=== PATIENT | male | born 1960 | race Caucasian/White ===

== ENCOUNTER 2016-11-08 09:33 | Inpatient (IN) | payer SELFPAY ==
[2016-11-08] MEDS ORDERED: NS 1000 ML 1,000 ML ONE (09:50)
[2016-11-08] MEDS ORDERED: ASPIRIN ONE (09:51)
[2016-11-08] MEDS ORDERED: DUONEB 0.5 MG/3 MG NEB ONE (09:55)
[2016-11-08] MEDS: NS 1000 ML 1,000 ML IV SCH ×2 (09:57→18:05)
[2016-11-08] MEDS ORDERED: ASPIRIN PO ONE (09:57)
--- NOTE | 2016-11-08 09:57 | DR.GENAD ---
HPI - PCP Primary Care Physician: NONE - Complaint/Symptoms Chief Complaint Doctors Comments: states that patient has had left chest pain for two days and shortness of breath. The pain is non radiating and there is no diaphoresis. He has a history of lung disease but no history of heart disease. Chief Complaint:: "SEVERE HURTING IN CHEST AREA." Self Treatment fo Chief Complaint: ALEVE - Source History Provided: Patient - Mode of Arrival Mode of Arrival: Ambulatory - Timing Onset of Chief Complaint: 11/07/16 PMH - PMH Past Medical History: Yes Past Medical History: COPD Past Surgical History: No - Family History History of Family Medical Conditions: No - Social History Does patient currently use any type of tobacco product: Yes Have you used tobacco products in the last 12 months: Yes Type of Tobacco Use: Cigarettes How many years tobacco product used: 20 Does any household member use tobacco: Yes Alcohol Use: Heavy Do you use any recreational Drugs:: No Lives With: Family Lives Where: Home - infectious screening In the last 2 months have you had wt loss of >10#?: NO Have you had fever, night sweats or hemotysis?: No Have you traveled outside the country in the last 6 months?: No ROS - Review of Systems Constitutional: negative: Diaphoresis Eyes: No Symptoms Reported ENTM: No Symptoms Reported Respiratoy: No Symptoms Reported, See HPI, Short of Breath Cardiovascular: Chest Pain (left chest pain) Genitourinary: No Symptoms Reported Neurological: No Symptoms Reported Musculoskeletal: No Symptoms Reported Integumentary: No Symptoms Reported Hematologic/Lymphatic: No Symptoms Reported Endocrine: No Symptoms Reported Psychiatric: No Symptoms Reported All Other Systems: Reviewed and Negative PE - Vital Signs Vitals: Temperature 98.1 F Pulse Rate [Right Brachial] 103 Pulse Rate 122 Respiratory Rate 20 Blood Pressure [Left Arm] 137/89 Blood Pressure 160/97 O2 Sat by Pulse Oximetry 96 - General Limitations: No Limitations General Appearance: Alert, In No Apparent Distress - Head Head Exam: Normal Inspection, Atraumatic - Eyes Eye exam: Normal Appearance, PERRL, EOMI - ENT ENT Exam: Normal Exam External Ear Exam: Normal External Inspection TM/Canal Exam: Bilateral Normal Nose Exam: Normal Nose Exam Mouth Exam: Normal Inspection Throat Exam: Normal Inspection - Neck Neck Exam: Normal Inspection - Chest Chest Inspection: Normal Inspection - Respiratory Respiratory Exam: Prolonged Expiratory Phase Respiratory Exam: Bilateral Wheezing - Abdominal Exam Abdominal Exam: Normal Inspection, Normal Bowel Sounds Abdominal Tenderness: negative: RUQ, RLQ, LUQ, LLQ, Epigastrium, Suprapubic, Diffuse, Mild, Moderate, Severe, Other - Extremities Extremities Exam: Normal Inspection, Full ROM - Back Back Exam: Normal Inspection - Neurologic Neurological Exam: negative: Alert, Oriented X3, CN II-XII Intact, Normal Gait, Motor Sensory Deficit, Reflexes Normal, Other - Psychiatric Psychiatric Exam: Normal Affect, Normal Mood - Skin Skin Exam: Warm, Dry Course - Treatment Treatment: Cardiazem zina, A Fib HR 177; HR 93@1029; chest pain resolved s/p NTGx2 - Reevaluation 1st: Improved - Consultation Called: 11:30 (Dr Burt agreed to admit for further management) ROR - Labs Reviewed Laboratory Results Reviewed?: Yes Result Diagrams: 11/08/16 10:01 Laboratory: WBC 8.0 X10^3/uL (3.6-10.0) 11/08/16 10:01 RBC 4.49 X10^6/uL (4.7-6.0) L 11/08/16 10:01 Hgb 15.5 g/dL (13.5-18.0) 11/08/16 10:01 Hct 45.0 % (42.0-54.0) 11/08/16 10:01 MCV 100.3 fL (80.0-100.0) H 11/08/16 10:01 MCH 34.6 pg (27.0-34.0) H 11/08/16 10:01 MCHC 34.5 g/dL (33.0-35.0) 11/08/16 10:01 RDW 14.2 % (11.6-16.5) 11/08/16 10:01 Plt Count 174 X10^3/uL (150.0-450.0) 11/08/16 10:01 Plt Count Comment Adequate (ADEQUATE) 11/08/16 10:01 MPV 8.1 fL (7.4-11.0) 11/08/16 10:01 Neut % 40.9 % (42.0-75.0) L 11/08/16 10:01 Lymph % 26.4 % (21.0-51.0) 11/08/16 10:01 [place] % 32.2 % (0.0-13.0) H 11/08/16 10:01 Eos % 0.1 % (0.9-2.9) L 11/08/16 10:01 Baso % 0.4 % (0.2-1.0) 11/08/16 10:01 Neut # 3.3 x10^3/uL (2.2-4.8) 11/08/16 10:01 Lymph # 2.1 X10^3/uL (1.3-2.9) 11/08/16 10:01 [place] # 2.6 x10^3/uL (0.3-0.8) H 11/08/16 10:01 Eos # 0.0 x10^3/uL (0.0-0.2) 11/08/16 10:01 Baso # 0.0 X10^3/uL (0.0-0.1) 11/08/16 10:01 Absolute Nucleated RBC 0.2 /100WBC 11/08/16 10:01 Total Counted 100 11/08/16 10:01 Neutrophils % (Manual) 50 % (39-76) 11/08/16 10:01 Band Neutrophils % 2 % (0-10) 11/08/16 10:01 Lymphocytes % (Manual) 30 % (13-43) 11/08/16 10:01 Monocytes % (Manual) 18 % (4-9) H 11/08/16 10:01 Plt Morphology Comment Normal (NORMAL) 11/08/16 10:01 RBC Morphology Normal (NORMAL) 11/08/16 10:01 INR Target Range - 11/08/16 10:01 INR 1.03 (0.8-1.3) 11/08/16 10:01 D-Dimer 109 ng/mL (0-400) 11/08/16 10:01 Sample Site Rr 11/08/16 09:56 ABG pH 7.460 (7.35-7.45) H 11/08/16 09:56 ABG pCO2 36.0 mmHg (35.0-45.0) 11/08/16 09:56 ABG pO2 123.0 mmHg (80.0-100.0) H 11/08/16 09:56 ABG HCO3 25.6 mmol/L (22-26) 11/08/16 09:56 ABG O2 Saturation 99.0 % (90-100) 11/08/16 09:56 ABG Base Excess 1.9 mmol/L (-2.0-2.0) 11/08/16 09:56 Danial Test Pos 11/08/16 09:56 A-a Gradient 32.0 mmHg 11/08/16 09:56 FiO2 28.000 11/08/16 09:56 Blood Gas Comments Pt jose eduardo well. cdn 11/08/16 09:56 Phosphorus 3.3 mg/dL (2.6-4.7) 11/08/16 10:01 Magnesium 1.7 mg/dL (1.7-2.9) 11/08/16 10:01 Creatine Kinase 58 Units/L (39-308) 11/08/16 10:01 CK-MB (CK-2) < 1.0 ng/mL (0-4.0) 11/08/16 10:01 CK/CKMB % Calc 1.7 % (<4) 11/08/16 10:01 Troponin I < 0.02 ng/mL (0-1.5) 11/08/16 10:01 - XRAY XRAY Interpreted by: Radiologist (Chest: The heart is normal. The pulmonary vessels are normal. The lungs are mildly hyhperinflated. No consolidation or effusion is seen. ) - Diagnosis Discharge Problem: A-fib Qualifiers: Atrial fibrillation type: unspecified Qualified Code(s): I48.91 - Unspecified atrial fibrillation Chest pain Qualifiers: Chest pain type: unspecified Qualified Code(s): R07.9 - Chest pain, unspecified - Discharge Plan Condition: Stable - Follow ups/Referrals Follow ups/Referrals: NFD,None [Primary Care Provider] - 3 days - Instructions
[2016-11-08 10:01] LABS: ABG ALLEN TEST POS; ABG BASE EXCESS 1.9 mmol/L (-2.0-2.0); ABG HCO3 25.6 mmol/L (22-26)
[2016-11-08] MEDS ORDERED: NS 100 ML IV 100 ML IV ONE (10:06)
[2016-11-08] MEDS ORDERED: CARDIZEM INJ 50 MG VIAL IVP ONE (10:06)
[2016-11-08] MEDS ORDERED: CARDIZEM INJ 125 MG VIAL ONE (10:07)
[2016-11-08] MEDS ORDERED: CARDIZEM INJ 50 MG VIAL ONE (10:10)
[2016-11-08] MEDS: CARDIZEM INJ 125 MG VIAL 125 MG in NS 100 ML IV 100 ML IV PRN ×2 (10:22→20:43)
--- NOTE | 2016-11-08 10:25 | RAD ---
HISTORY: Chest pain Study: Portable chest Comparison: None Findings: The heart is normal. The pulmonary vessels are normal. The lungs are mildly hyperinflated. No consoli dation or effusion is seen. There is overlying EKG lead artifact. No pneumothorax is seen the bones a re intact. IMPRESSION: Overlying EKG lead artifact and mild hyperinflation with no acute pulmonary abnormality seen. Reported By:
[2016-11-08 10:36] LABS: BASOPHILS % (AUTO) 0.4 % (0.2-1.0); EOSINOPHILS % (AUTO) 0.1 % (0.9-2.9); HEMOGLOBIN 15.5 g/dL (13.5-18.0); LYMPHOCYTES # (AUTO) 2.1 X10^3/uL (1.3-2.9); LYMPHOCYTES % (AUTO) 26.4 % (21.0-51.0); MEAN CORPUSCULAR HEMOGLOBIN 34.6 pg (27.0-34.0); MEAN CORPUSCULAR HGB CONC 34.5 g/dL (33.0-35.0); MEAN CORPUSCULAR VOLUME 100.3 fL (80.0-100.0); MEAN PLATELET VOLUME 8.1 fL (7.4-11.0); MONOCYTES # (AUTO) 2.6 x10^3/uL (0.3-0.8); MONOCYTES % (AUTO) 32.2 % (0.0-13.0); NEUTROPHILS # (AUTO) 3.3 x10^3/uL (2.2-4.8); NEUTROPHILS % (AUTO) 40.9 % (42.0-75.0); PLATELET COUNT 174 X10^3/uL (150.0-450.0); RED BLOOD COUNT 4.49 X10^6/uL (4.7-6.0); RED CELL DISTRIBUTION WIDTH 14.2 % (11.6-16.5)
[2016-11-08 10:37] LABS: CKMB % 1.7 % (<4); CREATINE KINASE 58 Units/L (39-308); CREATINE KINASE MB < 1.0 ng/mL (0-4.0); MAGNESIUM 1.7 mg/dL (1.7-2.9); PHOSPHORUS 3.3 mg/dL (2.6-4.7); TROPONIN I < 0.02 ng/mL (0-1.5)
[2016-11-08 11:15] LABS: BAND NEUTROPHILS % 2 % (0-10); PLATELET MORPHOLOGY COMMENT NORMAL (NORMAL)
[2016-11-08] MEDS ORDERED: ZOFRAN INJ 4 MG VIAL IVP PRN (12:10)
[2016-11-08] MEDS ORDERED: MORPHINE SULFATE INJ 4 MG IVP PRN (12:11)
[2016-11-08] MEDS: NICODERM PATCH 21 MG/24 HR TD SCH (13:20)
[2016-11-08 13:31] LABS: BILIRUBIN,URINE NEGATIVE (NEGATIVE); BLOOD/HEMOGLOBIN,URINE 1+ (NEGATIVE); GLUCOSE, URINE NEGATIVE (NEGATIVE); KETONES,URINE NEGATIVE (NEGATIVE); LEUKOCYTE ESTERASE ,URINE NEGATIVE (NEGATIVE); NITRITES,URINE NEGATIVE (NEGATIVE); PROTEIN,URINE NEGATIVE (NEGATIVE); UROBILINOGEN,URINE NORMAL (NORMAL)
[2016-11-08 13:33] VITALS: BMI 16.2
[2016-11-08 13:48] LABS: APPEARANCE,URINE CLEAR (CLEAR); BACTERIA,URINE NEGATIVE /HPF (NEGATIVE); COLOR,URINE YELLOW (YELLOW); RBC,URINE RARE /HPF (NEGATIVE); SQUAMOUS EPITHELIAL CELL,UR RARE /HPF (NEGATIVE)
[2016-11-08] MEDS: DUONEB 0.5 MG/3 MG NEB SCH ×2 (16:15→20:21)
[2016-11-08 16:21] LABS: CKMB % 1.8 % (<4); CREATINE KINASE 57 Units/L (39-308); CREATINE KINASE MB < 1.0 ng/mL (0-4.0); TROPONIN I < 0.02 ng/mL (0-1.5)
--- NOTE | 2016-11-08 17:19 | DR.H&P ---
H&P - History & Physical for Day of: H&P Date: 11/08/16 - Chief Complaint Chief Complaint: CHEST PAIN, SHORT OF BREATH, ATRIAL FIBRILLATION - Allergies Allergies/Adverse Reactions: Allergies Allergy/AdvReac Type Severity Reaction Status Date / Time No Known Allergies Allergy Verified 11/08/16 09:35 - History of Present Illness History of Present Illness: IS A 56 YEAR OLD WHITE MALE WHO PRESENTED TO THE ER WITH COMPLAINTS OF CHEST PAIN AND SHORTNESS OF BREATH THAT BEGAN TWO DAYS PRIOR TO PRESENTING TO THE ER. HE DENIES RADIATION OF PAIN OR DIAPHORESIS. HE ALSO DENIES A CARDIAC HISTORY. LUNGS WERE NOTED CLEAR ON AUSCULTATION. ON ARRIVAL TO ER, VITALS WERE 98.6-107-32-100%-167/126. PATIENT WAS PLACED ON CHALKER SOLES. ATRIAL FIBRILLATION WAS NOTED ON MONITOR. AN EKG WAS OBTAINED AND REPORTED ATRIAL FIBRILLATION WITH RATE OF 134 AND PVCs. CBC WNL EXCEPT RBC 4.43, MVC 100.3, MCH 34.6, NEUT % 40.9, MONO % 32.2, EOS % 0.1, MONO # 2.6. ABG REPORTED PH 7.460, PC02 36, P02 123, HCO3 25.6. CMP WNL. CARDIAC ENZYMES WNL. HE WAS GIVEN ASA 325MG, DUONEB, AND STARTED ON A CARDIZEM DRIP. WE ADMITTED PATIENT TO ICU FOR FURTHER TREATMENT AND OBSERVATION. HE WAS STARTED ON NS @ 125ML/HR, DUONEBS QID, MORPHINE 4MG IV Q6H PRN PAIN, NICOTINE PATCH DAILY, ZOFRAN 4MG IV Q8H PRN NAUSEA, AND WILL CONTINUE ON CARDIZEM DRIP. WE PLAN TO OBTAIN SERIAL CARDIAC ENZYMES AND EKGs. WE WILL RECHECK CBC, CMP AND FOLLOW UP WITH PATIENT IN AM. - Past Medical History Past Medical History: COPD, GERD, Hypertension Additional Medical History: CARDIAC ARRYTHMIA - Past Surgical History Surgical History: No History - Family History Family Medical History: Diabetes Mellitus, Cancer, Hypertension - Social History Does patient currently use any type of tobacco product: Yes Have you used tobacco products in the last 12 months: Yes Type of Tobacco Use: Cigarettes How many years tobacco product used: 30 Does any household member use tobacco: Yes Alcohol Use: DAILY Drug Use: None - Medications Home Medications: No Known Home Medications 1 tab XX DAILY 08/29/17 [History Confirmed 11/08/16] - Review of Systems Constitutional: No Symptoms Reported. denies: See HPI, Fever, Chills, Sweats, Weakness, Malaise, Other Eyes: No Symptoms Reported. denies: See HPI, Pain, Vision Change, Conjunctivae Inflammation, Eyelid Inflammation, Redness, Other ENT: No Symptoms Reported. denies: See HPI, Ear Pain, Ear Discharge, Nose Pain , Nose Discharge, Nose Congestion, Mouth Pain, Mouth Swelling, Throat Pain, Throat Swelling, Other Respiratory: See HPI, Shortness of Breath. denies: No Symptoms Reported, Cough , Dry, Hemoptysis, SOB with Excertion, Pleuritic Pain, Sputum, Wheezing, Other Cardiovascular: Chest Pain, See HPI. denies: No Symptoms Reported, Palpitations , Orthopnea, Paroxysmal Noc. Dyspnea, Edema, Light Headedness, Other Gastrointestinal: No Symptoms Reported. denies: See HPI, Nausea, Vomiting, Abdominal Pain, Diarrhea, Constipation, Melena, Hematochezia, Other Genitourinary: No Symptoms Reported. denies: See HPI, Dysuria, Frequency, Incontinence, Hematuria, Retention, Other Musculoskeletal: No Symptoms Reported. denies: See HPI, Shoulder Pain, Arm Pain , Back Pain, Hand Pain, Leg Pain, Foot Pain, Neck Pain, Other Skin: No Symptoms Reported. denies: See HPI, Rash, Lesions, Jaundice, Bruising , Wound, Ecchymosis, Other Neurological: No Symptoms Reported. denies: See HPI, Weakness, Numbness, Incoordination, Change in Speech, Confusion, Seizures, Other - Physical Exam Vital Signs: Temperature 98.9 F Pulse Rate [Right Brachial] 67 Pulse Rate 63 Respiratory Rate 24 Blood Pressure [Left Arm] 130/77 Blood Pressure 160/97 O2 Sat by Pulse Oximetry 97 Oriented: Normal Eyes: Normal Ear: Normal Nose: Normal Throat: Normal Respiratory: Clear Throughout Cardiovascular: Tachycardia : Normal Auscultation: Bowel Sounds: Normal Palpation: Normal Tenderness: Normal Skin: Normal Musculoskeletal: Normal Psychiatric: Normal Mood Description: Calm Affect: Normal Speech Pattern: Clear - Assessment/Plan (1) A-fib Qualifiers: Atrial fibrillation type: unspecified Qualified Code(s): I48.91 - Unspecified atrial fibrillation Status: Acute Plan: CARDIZEM DRIP, TELEMETRY, MONITOR EKG, CONTINUE TO MONITOR (2) Chest pain Qualifiers: Chest pain type: unspecified Qualified Code(s): R07.9 - Chest pain, unspecified Status: Acute Plan: SERIAL CARDIAC ENZYMES AND EKGs, MORPHINE PRN PAIN, NITRO PRN PAIN, SUPPLEMENTAL OXYGEN, TELEMETRY, CONTINUE TO MONITOR
[2016-11-08 22:00] LABS: CKMB % 2.1 % (<4); CREATINE KINASE 47 Units/L (39-308); CREATINE KINASE MB < 1.0 ng/mL (0-4.0); TROPONIN I < 0.02 ng/mL (0-1.5)
[2016-11-09] MEDS: NS 1000 ML 1,000 ML IV SCH ×2 (01:22→08:16)
[2016-11-09 05:21] LABS: ALANINE AMINOTRANSFERASE 10 Units/L (12-78); ALBUMIN 2.7 g/dL (3.4-5.0); ALKALINE PHOSPHATASE 45 Units/L (46-116); ASPARTATE AMINO TRANSFERASE 13 Units/L (15-37); BLOOD UREA NITROGEN 4 mg/dL (7-18); CARBON DIOXIDE 26.4 mmol/L (21-32); CHLORIDE 107 mmol/L (98-107); CREATININE 0.67 mg/dL (0.70-1.30); GLUCOSE 85 mg/dL (65-99); SODIUM 139 mmol/L (136-145); TOTAL PROTEIN 6.1 g/dL (6.4-8.2); eGFR BLACK RACES > 60 (>60); eGFR NON BLACK RACES > 60 (>60)
[2016-11-09 05:22] LABS: BASOPHILS % (AUTO) 0.6 % (0.2-1.0); EOSINOPHILS % (AUTO) 0.3 % (0.9-2.9); HEMATOCRIT 39.8 % (42.0-54.0); HEMOGLOBIN 13.7 g/dL (13.5-18.0); LYMPHOCYTES % (AUTO) 33.6 % (21.0-51.0); MEAN CORPUSCULAR HEMOGLOBIN 34.8 pg (27.0-34.0); MEAN CORPUSCULAR HGB CONC 34.6 g/dL (33.0-35.0); MEAN CORPUSCULAR VOLUME 100.6 fL (80.0-100.0); MEAN PLATELET VOLUME 8.6 fL (7.4-11.0); MONOCYTES # (AUTO) 1.1 x10^3/uL (0.3-0.8); MONOCYTES % (AUTO) 17.6 % (0.0-13.0); NEUTROPHILS # (AUTO) 2.9 x10^3/uL (2.2-4.8); NEUTROPHILS % (AUTO) 47.9 % (42.0-75.0); PLATELET COUNT 142 X10^3/uL (150.0-450.0); RED BLOOD COUNT 3.96 X10^6/uL (4.7-6.0); RED CELL DISTRIBUTION WIDTH 13.9 % (11.6-16.5)
[2016-11-09] MEDS ORDERED: K-RIDER 10 MEQ/NS 100 ML 10 MEQ/100 ML BAG IV PRN (06:32)
[2016-11-09] MEDS ORDERED: POTASSIUM CHLORIDE LIQ 20 MEQ UDC PO PRN (06:32)
[2016-11-09] MEDS ORDERED: K-LYTE EFFERVESCENT PO PRN (06:32)
[2016-11-09] MEDS ORDERED: K-DUR TAB 20 MEQ PO PRN (06:32)
[2016-11-09] MEDS: NICODERM PATCH 21 MG/24 HR TD SCH (08:16)
--- NOTE | 2016-11-09 08:37 | RAD ---
HISTORY: Shortness of breath. Study: Portable chest. Comparison: Chest x-ray dated November 08, 2016. Findings: The trachea is midline. The cardiac silhouette is unremarkable. Chronic emphysematous changes. No o bvious focal consolidation, pleural effusion, or pneumothorax. The bony thorax is unremarkable. IMPRESSION: No acute cardiopulmonary disease. Reported By:
[2016-11-09] MEDS: DUONEB 0.5 MG/3 MG NEB SCH (09:26)
[2016-11-09 10:35] VITALS: BP 163/82
== END 2016-11-09 10:58 | disposition home or self-care (01) | DRG 310 ==
LOC: ER 09:43 → ICU 12:02
PROVIDERS: ADMIT Internal Medicine; ATTEND Internal Medicine
DX: I48.91 Unspecified atrial fibrillation (principal); R07.89 Other chest pain; R06.02 Shortness of breath; J44.9 Chronic obstructive pulmonary disease, unspecified; R94.31 Abnormal electrocardiogram [ECG] [EKG]; I10 Essential (primary) hypertension; K21.9 Gastro-esophageal reflux disease without esophagitis
CPT/HCPCS: 36415; 36600; 71010; 80053; 81001; 82550; 82553; 82803; 83735; 84100; 84484; 85025; 85378; 85610; 93005; 94640; 96365; 96367; 96374; 96375; 99284; 99285; A4222; J3490; J7620

== ENCOUNTER 2017-07-17 11:42 | Emergency (ER) | payer OTHER ==
[2017-07-17 11:45] VITALS: BP 207/88; BMI 15.7
[2017-07-17] MEDS ORDERED: TORADOL 60 MG VIAL IM ONE (13:03)
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
[2017-07-17] MEDS ORDERED: TORADOL 60 MG VIAL ONE (13:08)
== END 2017-07-17 13:16 | disposition left against medical advice (07) ==
LOC: ER 11:58
DX: M54.5 Low back pain (principal)
CPT/HCPCS: 99281; J1885

== ENCOUNTER 2021-12-13 06:36 | Inpatient (IN) ==
--- NOTE | 2021-12-13 06:52 | DR.SOBA ---
HPI Time Seen Time Seen by Provider: 12/13/21 06:52 HPI Comment HPI Comment: A 61 y/o male presenting with c/o SOB, palpitaiaon and nasal blood loss x 4 days, He subsequrntly has nasal bleed He denies chad chest pain. COVID-19 Coronavirus risk:travel/contact w/high risk person: No Has patient experienced Coronavirus symptoms: Yes Coronavirus symptoms experienced: Coughing and Shortness of Breath Reviewed Nurses Notes Reviewed: Yes Source History Provided: Patient Timing Onset of Chief Complaint: 12/09/21 Duration Duration: Days Context Onset:: At Rest PE Risk Factors:: None Associated Signs and Symptoms Associated Signs and Symptoms: Cough PMH PMH Past Medical History: Hypertension Past Surgical History: No Surgical History: No History Family History Family Medical History: Diabetes Mellitus, Cancer and Hypertension Social History Do you use any recreational Drugs:: No Travel Risk Coronavirus risk:travel/contact w/high risk person: No Has patient experienced Coronavirus symptoms: Yes Coronavirus symptoms experienced: Coughing and Shortness of Breath ROS Review of Systems Constitutional: No Symptoms Reported Eyes: No Symptoms Reported ENTM: No Symptoms Reported Respiratoy: Non-Productive Cough and Short of Breath Cardiovascular: No Symptoms Reported Gastrointestinal/Abdominal: No Symptoms Reported Genitourinary: No Symptoms Reported Neurological: No Symptoms Reported Musculoskeletal: No Symptoms Reported Integumentary: No Symptoms Reported Hematologic/Lymphatic: No Symptoms Reported Endocrine: No Symptoms Reported Psychiatric: No Symptoms Reported All Other Systems: Reviewed and Negative PE Vital Signs Vitals: Temperature 98.3 F Pulse Rate 113 Respiratory Rate 41 Blood Pressure [Left Arm] 163/82 Blood Pressure 147/82 O2 Sat by Pulse Oximetry 99 General Limitations: No Limitations General Appearance: Alert and In No Apparent Distress Head Head Exam: Normal Inspection, Atraumatic and Normocephalic Eyes Eye exam: Normal Appearance and EOMI ENT ENT Exam: Normal Exam, Normal Oropharynx, Normal External Ear Exam and Mucous Membranes Moist Neck Neck Exam: Normal Inspection, Full ROM and Trachea Midline Chest Chest Inspection: Normal Inspection and Symmetric Chest Wall Rise Respiratory Respiratory Exam: Normal Lung Sounds Bilat Cardiovascular Cardiovascular Exam: Regular Rate, Normal Rhythm, Normal Heart Sounds, +S1 and +S2 Abdominal Exam Abdominal Exam: Normal Inspection, Normal Bowel Sounds and Soft Extremities Extremities Exam: Normal Inspection, Full ROM and Tenderness Back Back Exam: Normal Inspection and Full ROM Neurologic Neurological Exam: Alert and Oriented X3 Psychiatric Psychiatric Exam: Normal Affect and Normal Mood Skin Skin Exam: Dry, Intact and Normal Color COURSE Treatment Treatment: his test results were reviewed with hm and his son. They were informed of plan to admit. I had spoken to Dr. Marley who is deportation officer and he okayed the admission Reevaluation 1st: Improved Education/Counseling Education/Counseling: Patient, Family, Education and Counseling Educated On: Treatment, Diagnosis, Prognosis and Needs for Follow Up ROR Labs Reviewed Laboratory Results Reviewed?: Yes Result Diagrams: 12/13/21 06:44 12/13/21 06:44 Laboratory: WBC 16.4 X10^3/uL (3.6-10.0) H 12/13/21 06:44 RBC 5.31 X10^6/uL (4.7-6.0) 12/13/21 06:44 Hgb 15.3 g/dL (13.5-18.0) 12/13/21 06:44 Hct 46.1 % (42.0-54.0) 12/13/21 06:44 MCV 86.7 fL (80.0-100.0) 12/13/21 06:44 MCH 28.7 pg (27.0-34.0) 12/13/21 06:44 MCHC 33.1 g/dL (33.0-35.0) 12/13/21 06:44 RDW 24.0 % (11.6-16.5) H 12/13/21 06:44 Plt Count 86 X10^3/uL (150.0-450.0) L 12/13/21 06:44 Plt Count Comment Decreased (ADEQUATE) 12/13/21 06:44 MPV 9.7 fL (7.4-11.0) 12/13/21 06:44 Neut % (Auto) 10.7 % (42.0-75.0) L 12/13/21 06:44 Lymph % (Auto) 5.6 % (21.0-51.0) L 12/13/21 06:44 [place] % (Auto) 83.6 % (0.0-13.0) H 12/13/21 06:44 Eos % (Auto) 0.0 % (0.9-2.9) L 12/13/21 06:44 Baso % (Auto) 0.1 % (0.2-1.0) L 12/13/21 06:44 Neut # (Auto) 1.7 x10^3/uL (2.2-4.8) L 12/13/21 06:44 Lymph # (Auto) 0.9 X10^3/uL (1.3-2.9) L 12/13/21 06:44 [place] # (Auto) 13.7 x10^3/uL (0.3-0.8) H 12/13/21 06:44 Eos # (Auto) 0.0 x10^3/uL (0.0-0.2) 12/13/21 06:44 Baso # (Auto) 0.0 X10^3/uL (0.0-0.1) 12/13/21 06:44 Absolute Nucleated RBC 0.0 /100WBC 12/13/21 06:44 Giant Platelets Rare 12/13/21 06:44 Plt Morphology Comment Normal (NORMAL) 12/13/21 06:44 RBC Morphology Abnormal (NORMAL) 12/13/21 06:44 Anisocytosis 2+ A 12/13/21 06:44 Target Cells Slight A 12/13/21 06:44 Stomatocytes 1+ A 12/13/21 06:44 D-Dimer 0.50 ug/ml (0.0-0.57) 12/13/21 06:44 Sodium 135 mmol/L (136-145) L 12/13/21 06:44 Corrected Sodium 135 mmol/L (136-145) L 12/13/21 06:44 Potassium 3.8 mmol/L (3.5-5.1) 12/13/21 06:44 Chloride 96 mmol/L (98-107) L 12/13/21 06:44 Carbon Dioxide 31.1 mmol/L (21-32) 12/13/21 06:44 BUN 6 mg/dL (7-18) L 12/13/21 06:44 Creatinine 0.84 mg/dL (0.70-1.30) 12/13/21 06:44 Est GFR (MDRD) Af Amer > 60 (>60) 12/13/21 06:44 Est GFR (MDRD) Non-Af > 60 (>60) 12/13/21 06:44 Glucose 111 mg/dL (65-99) H 12/13/21 06:44 Calcium 8.5 mg/dL (8.5-10.1) 12/13/21 06:44 Corrected Calcium 9.1 mg/dL (8.5-10.1) 12/13/21 06:44 Total Bilirubin 0.50 mg/dL (0.2-1.0) 12/13/21 06:44 AST 39 Units/L (15-37) H 12/13/21 06:44 ALT 19 Units/L (12-78) 12/13/21 06:44 Alkaline Phosphatase 86 Units/L (46-116) 12/13/21 06:44 Creatine Kinase 205 Units/L (39-308) 12/13/21 06:44 Troponin I High Sens 23.5 ng/L (4.0-60.0) 12/13/21 06:44 B-Natriuretic Peptide 179 pg/mL (0-79) H 12/13/21 06:44 Total Protein 8.3 g/dL (6.4-8.2) H 12/13/21 06:44 Albumin 3.2 g/dL (3.4-5.0) L 12/13/21 06:44 Globulin 5.1 g/dL (2.5-4.5) H 12/13/21 06:44 Albumin/Globulin Ratio 0.6 Ratio (1.1-2.1) L 12/13/21 06:44 EKG Rate: 120 Prospect: Normal Rhythm: ST Block: None Hypertrophy: MELISSA ST: Normal Opioid Opioid Risk Tool Age (Joaquin box if 16-45): No History of Preadolescent Sexual Abuse: No Total: 0 Total Score Risk Category: Low Risk Copyright: [facility] predicting aberrant behaviors Discharge Plan Diagnosis Discharge Problem: Pneumonia, A-fib, Lung nodule Discharge Plan Patient Disposition: 09 ADMITTED INPATIENT Condition: Stable Prescriptions: No Action No Known Home Medications 1 tab XX DAILY diltiazem HCl 180 MG capsule,extended release 24hr 1 cap PO Q24H Qty: 30 3RF Rx Instructions: TAKE 1 TABLET DAILY cyclobenzaprine 10 mg tablet 1 tab PO BID atorvastatin 40 mg tablet 1 tab PO QDAY cilostazol 100 mg tablet 1 tab PO BID lisinopril-hydrochlorothiazide 20-12.5 mg tablet 1 tab PO QDAY azithromycin 250 mg tablet 1 tab PO QDAY metoprolol succinate 50 mg tablet extended release 24 hr 1 tab PO QDAY hydrocodone-acetaminophen 10-325 mg tablet 1 tab PO TID PRN cephalexin 500 mg capsule 1 cap PO prednisone 50 mg tablet 1 tab PO QDAY albuterol sulfate [ProAir HFA] 90 mcg/actuation HFA aerosol inhaler 1 puff inhalation Q4HR fluticasone propionate 50 mcg/actuation spray,suspension 1 spray INTRANASAL QDAY lactulose 10 gram/15 mL solution 15 ml PO QDAY PRN (Reason: constipation) budesonide-formoterol [Symbicort] 160-4.5 mcg/actuation HFA aerosol inhaler 2 puff inhalation BID Eliquis 5 mg tablet 1 tab PO BID Combivent Respimat 20-100 mcg/actuation mist 1 puff inhalation QID Health Concerns: Post Hospitalization: new medications and changes needed to prevent readmission or further decline. Pt educated and given instructions on all concerns. Plan of Treatment: Continue with present treatment and follow up plan. Pt is to keep follow up appointment as instructed and take medications as ordered. Orders to Discharge Patient Discharge Orders: Transfer (Routine); Ordered 12/13/21 Ordered By: JOSE GU Follow ups/Referrals Follow ups/Referrals: Douglas LUNA [Primary Care Provider] - 3 days ADDITIONAL NOTES Additional Notes Additional Notes: Name: Nara GORDON#: [id number]: [id number]: 1960ex: MLocation: EROrder Number(s): [id number](s):CHEST, 1 VIEW Ordering Physician: JOSE GU Primary Care: Douglas LUNA Service Date: 12/13/21 Service Time: 0638 HISTORY SHORT OF BREATH STUDY CHEST, 1 VIEW COMPARISON None TECHNIQUE AP view of the chest FINDINGS There is narrowing of the cardiac and mediastinal contours. Lungs are hyperexpanded. Small airspace opacity in the right upper lobe. There is a nodular left midlung opacity that measures 1.3 cm craniocaudal and appears to have spiculated margins. There is blunting of the costophrenic sulci. No pneumothorax. IMPRESSION COPD. Small airspace opacity in the right upper lobe may represent pneumonia. Suspicious nodular left midlung opacity. Recommend CT chest for further evaluation. Electronically signed by: Kevin Walls (Dec 13, 2021 06:53:54) Report Electronically signed: 12/13/21 0655 CC: Jose Gu
--- NOTE | 2021-12-13 06:55 | RAD ---
HISTORYSHORT OF BREATHSTUDYCHEST, 1 VIEWCOMPARISONNoneTECHNIQUEAP view of the chestFINDINGSThere is narrowing of the cardiac and mediastinal contours. Lungs are hyperexpanded. Small airspace opacity in the right upper lobe. There is a nodular left midlung opacity that measures 1.3 cm craniocaudal and appears to have spiculated margins. There is blunting of the costophrenic sulci. No pneumothorax.IMPRESSIONCOPD. Small airspace opacity in the right upper lobe may represent pneumonia.Suspicious nodular left midlung opacity. Recommend CT chest for further evaluation.Electronically signed by: Kevin Walls (Dec 13, 2021 06:53:54)
[2021-12-13 06:59] LABS: BASOPHILS % (AUTO) 0.1 % (0.2-1.0); HEMATOCRIT 46.1 % (42.0-54.0); HEMOGLOBIN 15.3 g/dL (13.5-18.0); LYMPHOCYTES # (AUTO) 0.9 X10^3/uL (1.3-2.9); LYMPHOCYTES % (AUTO) 5.6 % (21.0-51.0); MEAN CORPUSCULAR HEMOGLOBIN 28.7 pg (27.0-34.0); MEAN CORPUSCULAR HGB CONC 33.1 g/dL (33.0-35.0); MEAN CORPUSCULAR VOLUME 86.7 fL (80.0-100.0); MEAN PLATELET VOLUME 9.7 fL (7.4-11.0); MONOCYTES # (AUTO) 13.7 x10^3/uL (0.3-0.8); MONOCYTES % (AUTO) 83.6 % (0.0-13.0); NEUTROPHILS # (AUTO) 1.7 x10^3/uL (2.2-4.8); NEUTROPHILS % (AUTO) 10.7 % (42.0-75.0); RED BLOOD COUNT 5.31 X10^6/uL (4.7-6.0); WHITE BLOOD COUNT 16.4 X10^3/uL (3.6-10.0)
[2021-12-13] MEDS ORDERED: LEVAQUIN PREMIX IV 750 MG 750 MG/150 ML BAG IV ONE ×2 (07:09→07:15)
[2021-12-13] MEDS: DUONEB 0.5 MG/3 MG (3 mL) NEB ONE ×2 (07:11→09:21)
[2021-12-13] MEDS ORDERED: XOPENEX 1.25 MG/3 ML NEBULE NEB ONE (07:11)
[2021-12-13] MEDS ORDERED: SOLU-Medrol 40 MG VIAL IVP ONE (07:11)
[2021-12-13] MEDS ORDERED: SOLU-Medrol 40 MG VIAL ONE (07:15)
[2021-12-13 07:18] LABS: ALANINE AMINOTRANSFERASE 19 Units/L (12-78); ALBUMIN 3.2 g/dL (3.4-5.0); ALKALINE PHOSPHATASE 86 Units/L (46-116); ASPARTATE AMINO TRANSFERASE 39 Units/L (15-37); BLOOD UREA NITROGEN 6 mg/dL (7-18); CALCIUM 8.5 mg/dL (8.5-10.1); CARBON DIOXIDE 31.1 mmol/L (21-32); CHLORIDE 96 mmol/L (98-107); COR CA(FOR HYPOALB) 9.1 mg/dL (8.5-10.1); COR NA(FOR HYPERGLY) 135 mmol/L (136-145); CREATININE 0.84 mg/dL (0.70-1.30); SODIUM 135 mmol/L (136-145); TOTAL PROTEIN 8.3 g/dL (6.4-8.2); eGFR NON BLACK RACES > 60 (>60)
[2021-12-13 07:23] LABS: ANISOCYTOSIS 2+; GIANT PLATELET RARE; PLATELET MORPHOLOGY COMMENT NORMAL (NORMAL); STOMATOCYTES 1+; TARGET CELLS SLIGHT
[2021-12-13] MEDS ORDERED: TUSSIONEX PENNKINETIC SUSP PO PRN (07:41)
[2021-12-13] MEDS: LEVAQUIN PREMIX IV 750 MG 750 MG/150 ML BAG IV SCH (08:29)
[2021-12-13] MEDS ORDERED: PATIENT'S HOME MEDICATION (Lisinopril-Hydrochlorothiazide 20-12.5 mg tablet) PO SCH (10:16)
[2021-12-13] MEDS ORDERED: PATIENT'S HOME MEDICATION (Ipratropium-Albuterol [Combivent Respimat] 20-100 mcg/actuation IN SCH (10:16)
[2021-12-13] MEDS ORDERED: PREDNISONE 50 MG PO SCH (10:16)
[2021-12-13] MEDS ORDERED: PATIENT'S HOME MEDICATION (Budesonide-Formoterol [Symbicort] 160-4.5 mcg/actuation HFA aer IN SCH (10:16)
[2021-12-13] MEDS ORDERED: VENTOLIN or PROAIR HFA IN SCH (10:16)
[2021-12-13 11:15] VITALS: BMI 14.8
[2021-12-13] MEDS ORDERED: ZESTRIL TAB 20 MG ONE (11:21)
[2021-12-13] MEDS ORDERED: NS 1/2 1,000 ML IV 1,000 ML IV ONE (11:22)
[2021-12-13] MEDS: ELIQUIS PO SCH ×2 (11:33→20:16)
[2021-12-13] MEDS: PLETAL PO SCH ×2 (11:34→20:16)
[2021-12-13] MEDS: HYDROCHLOROTHIAZIDE 12.5 MG CAP PO SCH (11:34)
[2021-12-13] MEDS: FLEXERIL TAB 10 MG PO SCH ×2 (11:35→20:16)
[2021-12-13] MEDS: TAMIFLU PO SCH ×2 (11:36→20:15)
[2021-12-13] MEDS: ZESTRIL TAB 20 MG PO SCH (11:38)
[2021-12-13] MEDS: FLONASE NASAL SPRAY ENOSTRIL SCH (11:38)
[2021-12-13] MEDS: ROBITUSSIN DM PO SCH ×4 (11:40→20:16)
[2021-12-13] MEDS: NS 1/2 1,000 ML IV 1,000 ML IV SCH ×2 (12:16→22:05)
[2021-12-13] MEDS: XOPENEX 1.25 MG/3 ML NEBULE NEB SCH ×3 (13:10→21:00)
[2021-12-13] MEDS: NICOTINE PATCH TD SCH (14:23)
[2021-12-13] MEDS: TOPROL XL PO SCH (14:24)
[2021-12-13] MEDS: NORCO 10/325 TAB PO PRN (14:25)
[2021-12-13] MEDS: LIPITOR TAB 40 MG PO SCH (20:16)
[2021-12-13] MEDS: PULMICORT NEB TX 0.5 MG NEB SCH (21:00)
[2021-12-14] MEDS ORDERED: NS 1/2 1,000 ML IV 1,000 ML IV ONE ×2 (00:39→08:18)
[2021-12-14] MEDS: NS 1/2 1,000 ML IV 1,000 ML IV SCH ×2 (00:42→11:14)
[2021-12-14 06:21] LABS: BASOPHILS % (AUTO) 0.1 % (0.2-1.0); HEMATOCRIT 38.2 % (42.0-54.0); HEMOGLOBIN 12.8 g/dL (13.5-18.0); LYMPHOCYTES % (AUTO) 13.5 % (21.0-51.0); MEAN CORPUSCULAR HEMOGLOBIN 29.1 pg (27.0-34.0); MEAN CORPUSCULAR HGB CONC 33.4 g/dL (33.0-35.0); MEAN CORPUSCULAR VOLUME 87.3 fL (80.0-100.0); MEAN PLATELET VOLUME 9.6 fL (7.4-11.0); MONOCYTES # (AUTO) 4.6 x10^3/uL (0.3-0.8); NEUTROPHILS % (AUTO) 26.4 % (42.0-75.0); RED BLOOD COUNT 4.38 X10^6/uL (4.7-6.0); WHITE BLOOD COUNT 7.7 X10^3/uL (3.6-10.0)
[2021-12-14 06:37] LABS: ALANINE AMINOTRANSFERASE 16 Units/L (12-78); ALBUMIN 2.4 g/dL (3.4-5.0); ALKALINE PHOSPHATASE 59 Units/L (46-116); ASPARTATE AMINO TRANSFERASE 28 Units/L (15-37); BLOOD UREA NITROGEN 8 mg/dL (7-18); CALCIUM 7.6 mg/dL (8.5-10.1); CARBON DIOXIDE 32.4 mmol/L (21-32); CHLORIDE 96 mmol/L (98-107); COR CA(FOR HYPOALB) 8.9 mg/dL (8.5-10.1); SODIUM 132 mmol/L (136-145); TOTAL PROTEIN 6.6 g/dL (6.4-8.2); eGFR NON BLACK RACES > 60 (>60)
[2021-12-14] MEDS ORDERED: POTASSIUM CHL 40 MEQ/NS 0.45% 500 ML IV PRN (06:43)
[2021-12-14] MEDS ORDERED: MICRO K EXTEN CAP 10 MEQ PO PRN (06:43)
[2021-12-14] MEDS ORDERED: KLOR-CON PO PRN (06:43)
[2021-12-14] MEDS ORDERED: POTASSIUM CHL 60 MEQ/NS 0.45% 500 ML IV PRN (06:43)
[2021-12-14] MEDS ORDERED: K-RIDER 10 MEQ/NS 100 ML 10 MEQ/100 ML BAG IV PRN (06:43)
[2021-12-14] MEDS ORDERED: POTASSIUM CHLORIDE LIQ 20 MEQ UDC PO PRN (06:43)
[2021-12-14 07:34] LABS: ANISOCYTOSIS 2+; PLATELET MORPHOLOGY COMMENT NORMAL (NORMAL); TARGET CELLS 1+
[2021-12-14] MEDS ORDERED: ZESTRIL TAB 20 MG ONE (08:17)
--- NOTE | 2021-12-14 08:19 | DR.H&P ---
H&P History & Physical for Day of: H&P Date: 12/13/21 Chief Complaint Chief Complaint: Shortness of breath Weakness, Fatigue Allergies Allergies Allergy/AdvReac Type Severity Reaction Status Date / Time No Known Allergies Allergy Verified 11/08/16 09:35 History of Present Illness History of Present Illness: Pt is a 61 year old male past medical history of Hypertension, Atrial fibrillation, COPD, presenting with worsening shortness of breath, weakness, and fatigue for the past week. He reports having chills a few days ago but denies any current fevers. Reports wheezing and cough. He is not on any home oxygen. Labs/imaging: Wbc 16.4, Hgb 15.3, Plt 86, Na 135, K 3.8, Creatinine 0.84, Glucose 111, D-dimer 0.50, Troponin negative, BNP 179, Influenza A positive, CXR results: COPD. Small airspace opacity in the right upper lobe may represent pneumonia. Suspicious nodular left midlung opacity. Recommend CT chest for further evaluation. Blood cultures pending, Sputum cultures pending. Pt was started on supplemental oxygen of 3L nasal cannula, IVF 1/2 NS@75ml/h, Antibiotics: IV Levaquin 750mg. Will add Tamiflu for influenza A. Scheduled bronchodilators. Restart home medications, add tussionex for cough. After discussing with patient will add metoprolol succinate 25mg since patient was taking medications previously and ran out of refills. Awaiting CT chest results based on CXR. Wean/titrate supplemental oxygen as tolerated. Will continue to closely monitor, follow up labs/imaging. Past Medical History Past Medical History: Hypertension Additional Medical History: CARDIAC ARRYTHMIA Past Surgical History Surgical History: No History Family History Family Medical History: Diabetes Mellitus, Cancer and Hypertension Social History Does patient currently use any type of tobacco product: Yes Have you used tobacco products in the last 12 months: Yes Type of Tobacco Use: Cigarettes Does any household member use tobacco: Yes Alcohol Use: Rarely Drug Use: None Medications Home Medications: No Known Allergies Allergy (Verified 11/08/16 09:35) CONTINUE taking the following medications albuterol sulfate 90 mcg/actuation aerosol inhaler (ProAir HFA) 1 puff inhalation Q4HR 12/13/21 [History] apixaban 5 mg tablet (Eliquis) 1 tab PO BID 12/13/21 [History] atorvastatin 40 mg tablet 1 tab PO QDAY PRN 12/13/21 [History] azithromycin 250 mg tablet 1 tab PO QDAY 12/13/21 [History] budesonide-formoterol HFA 160 mcg-4.5 mcg/actuation aerosol inhaler (Symbicort) 2 puff inhalation BID 12/13/21 [History] cyclobenzaprine 10 mg tablet 1 tab PO BID PRN 12/13/21 [History] fluticasone propionate 50 mcg/actuation nasal spray,suspension 1 spray intranasal QDAY 12/13/21 [History] hydrocodone 10 mg-acetaminophen 325 mg tablet 1 tab PO TID PRN 12/13/21 [History] ipratropium 20 mcg-albuterol 100 mcg/actuation mist for inhalation (Combivent Respimat) 1 puff inhalation QID PRN 12/13/21 [History] lactulose 10 gram/15 mL oral solution 15 ml PO QDAY PRN constipation 12/13/21 [History] lisinopril 20 mg-hydrochlorothiazide 12.5 mg tablet 1 tab PO QDAY 12/13/21 [History] prednisone 50 mg tablet 1 tab PO QDAY 12/13/21 [History] Labs Result Diagrams: 12/15/21 05:40 12/15/21 05:40 Labs: 12/13/21 12:56 Sputum - Expectorated Sputum - Final Laboratory WBC 7.7 X10^3/uL (3.6-10.0) D 12/14/21 05:37 RBC 4.38 X10^6/uL (4.7-6.0) L 12/14/21 05:37 Hgb 12.8 g/dL (13.5-18.0) L D 12/14/21 05:37 Hct 38.2 % (42.0-54.0) L 12/14/21 05:37 MCV 87.3 fL (80.0-100.0) 12/14/21 05:37 MCH 29.1 pg (27.0-34.0) 12/14/21 05:37 MCHC 33.4 g/dL (33.0-35.0) 12/14/21 05:37 RDW 23.0 % (11.6-16.5) H 12/14/21 05:37 Plt Count 70 X10^3/uL (150.0-450.0) L 12/14/21 05:37 Plt Count Comment Decreased (ADEQUATE) 12/14/21 05:37 MPV 9.6 fL (7.4-11.0) 12/14/21 05:37 Neut % (Auto) 26.4 % (42.0-75.0) L 12/14/21 05:37 Lymph % (Auto) 13.5 % (21.0-51.0) L 12/14/21 05:37 [place] % (Auto) 60.0 % (0.0-13.0) H 12/14/21 05:37 Eos % (Auto) 0.0 % (0.9-2.9) L 12/14/21 05:37 Baso % (Auto) 0.1 % (0.2-1.0) L 12/14/21 05:37 Neut # (Auto) 2.0 x10^3/uL (2.2-4.8) L 12/14/21 05:37 Lymph # (Auto) 1.0 X10^3/uL (1.3-2.9) L 12/14/21 05:37 [place] # (Auto) 4.6 x10^3/uL (0.3-0.8) H 12/14/21 05:37 Eos # (Auto) 0.0 x10^3/uL (0.0-0.2) 12/14/21 05:37 Baso # (Auto) 0.0 X10^3/uL (0.0-0.1) 12/14/21 05:37 Absolute Nucleated RBC 0.1 /100WBC 12/14/21 05:37 Giant Platelets Rare 12/13/21 06:44 Plt Morphology Comment Normal (NORMAL) 12/14/21 05:37 RBC Morphology Abnormal (NORMAL) 12/14/21 05:37 Anisocytosis 2+ A 12/14/21 05:37 Target Cells 1+ A 12/14/21 05:37 Stomatocytes 1+ A 12/13/21 06:44 D-Dimer 0.50 ug/ml (0.0-0.57) 12/13/21 06:44 Sodium 132 mmol/L (136-145) L 12/14/21 05:37 Corrected Sodium TNP 12/14/21 05:37 Potassium 3.1 mmol/L (3.5-5.1) L 12/14/21 05:37 Chloride 96 mmol/L (98-107) L 12/14/21 05:37 Carbon Dioxide 32.4 mmol/L (21-32) H 12/14/21 05:37 BUN 8 mg/dL (7-18) 12/14/21 05:37 Creatinine 0.70 mg/dL (0.70-1.30) 12/14/21 05:37 Est GFR (MDRD) Af Amer > 60 (>60) 12/14/21 05:37 Est GFR (MDRD) Non-Af > 60 (>60) 12/14/21 05:37 Glucose 75 mg/dL (65-99) 12/14/21 05:37 Calcium 7.6 mg/dL (8.5-10.1) L 12/14/21 05:37 Corrected Calcium 8.9 mg/dL (8.5-10.1) 12/14/21 05:37 Magnesium 1.6 mg/dL (1.7-2.9) L 12/14/21 05:37 Total Bilirubin 0.40 mg/dL (0.2-1.0) 12/14/21 05:37 AST 28 Units/L (15-37) 12/14/21 05:37 ALT 16 Units/L (12-78) 12/14/21 05:37 Alkaline Phosphatase 59 Units/L (46-116) 12/14/21 05:37 Creatine Kinase 205 Units/L (39-308) 12/13/21 06:44 Troponin I High Sens 23.5 ng/L (4.0-60.0) 12/13/21 06:44 B-Natriuretic Peptide 179 pg/mL (0-79) H 12/13/21 06:44 Total Protein 6.6 g/dL (6.4-8.2) 12/14/21 05:37 Albumin 2.4 g/dL (3.4-5.0) L 12/14/21 05:37 Globulin 4.2 g/dL (2.5-4.5) 12/14/21 05:37 Albumin/Globulin Ratio 0.6 Ratio (1.1-2.1) L 12/14/21 05:37 SARS-CoV-2 (PCR) Negative (NEGATIVE) 12/13/21 07:30 Influenza Type A (PCR) Positive (NEGATIVE) A 12/13/21 07:30 Influenza Type B (PCR) Negative (NEGATIVE) 12/13/21 07:30 RSV (PCR) Negative (NEGATIVE) 12/13/21 07:30 Review of Systems Constitutional: Chills and Weakness Eyes: No Symptoms Reported ENT: No Symptoms Reported Respiratory: Cough, Shortness of Breath, Sputum and Wheezing Cardiovascular: No Symptoms Reported Gastrointestinal: No Symptoms Reported Genitourinary: No Symptoms Reported Musculoskeletal: No Symptoms Reported Skin: No Symptoms Reported Neurological: No Symptoms Reported Physical Exam Vital Signs: Temperature 98.2 F Pulse Rate [Right Brachial] 76 Pulse Rate 70 Respiratory Rate 20 Blood Pressure [Left Arm] 91/55 Blood Pressure 146/85 O2 Sat by Pulse Oximetry 99 Oriented: Normal Eyes: Normal Ear: Normal Nose: Normal Throat: Normal Respiratory: Clear Throughout Cardiovascular: Normal : Normal Auscultation: Bowel Sounds: Normal Palpation: Normal Tenderness: Normal Skin: Normal Musculoskeletal: Normal Psychiatric: Normal Mood Description: Calm and Appropriate Affect: Normal Speech Pattern: Clear and Appropriate Assessment/Plan (1) Influenza A: Narrative Support Text: Start on tamiflu Status: Acute (2) Pneumonia: Narrative Support Text: IV Levaquin Status: Acute (3) Lung nodule: Narrative Support Text: CT chest ordered Status: Acute (4) A-fib: Narrative Support Text: Add metoprolol succineate 25mg for rate control Status: Acute (5) COPD exacerbation: Status: Acute Review H&P Reviewed: Yes Patient was examined?: Yes
[2021-12-14] MEDS: XOPENEX 1.25 MG/3 ML NEBULE NEB SCH ×5 (08:37→20:47)
[2021-12-14] MEDS: PULMICORT NEB TX 0.5 MG NEB SCH ×2 (08:37→20:47)
[2021-12-14] MEDS: ZESTRIL TAB 20 MG PO SCH ×2 (08:57→09:28)
[2021-12-14] MEDS: ELIQUIS PO SCH ×2 (08:58→21:42)
[2021-12-14] MEDS: FLONASE NASAL SPRAY ENOSTRIL SCH (08:58)
[2021-12-14] MEDS: LEVAQUIN PREMIX IV 750 MG 750 MG/150 ML BAG IV SCH (08:59)
[2021-12-14] MEDS ORDERED: SOLU-Medrol 40 MG VIAL IVP SCH (09:00)
[2021-12-14] MEDS: TAMIFLU PO SCH ×2 (09:02→21:42)
[2021-12-14] MEDS: ROBITUSSIN DM PO SCH ×4 (09:03→21:42)
[2021-12-14] MEDS: PLETAL PO SCH ×2 (09:03→21:44)
[2021-12-14] MEDS: NICOTINE PATCH TD SCH (09:03)
[2021-12-14] MEDS: MAGNESIUM SULFATE 1 GRAM/100 mL PREMIX 1 G/100 ML BAG IV PRN ×2 (09:05→12:40)
[2021-12-14] MEDS: K-DUR TAB 20 MEQ PO PRN (09:05)
[2021-12-14] MEDS: TOPROL XL PO SCH (09:28)
[2021-12-14] MEDS: FLEXERIL TAB 10 MG PO SCH ×2 (09:28→21:47)
[2021-12-14] MEDS: HYDROCHLOROTHIAZIDE 12.5 MG CAP PO SCH (09:28)
[2021-12-14] MEDS: NORCO 10/325 TAB PO PRN (11:56)
[2021-12-14] MEDS: LIPITOR TAB 40 MG PO SCH (21:44)
[2021-12-15] MEDS: NS 1/2 1,000 ML IV 1,000 ML IV SCH (02:04)
[2021-12-15 06:04] LABS: BASOPHILS % (AUTO) 0.2 % (0.2-1.0); HEMATOCRIT 38.8 % (42.0-54.0); HEMOGLOBIN 12.7 g/dL (13.5-18.0); LYMPHOCYTES # (AUTO) 1.2 X10^3/uL (1.3-2.9); MEAN CORPUSCULAR HEMOGLOBIN 28.4 pg (27.0-34.0); MEAN CORPUSCULAR HGB CONC 32.8 g/dL (33.0-35.0); MEAN CORPUSCULAR VOLUME 86.5 fL (80.0-100.0); MEAN PLATELET VOLUME 9.9 fL (7.4-11.0); MONOCYTES # (AUTO) 4.4 x10^3/uL (0.3-0.8); MONOCYTES % (AUTO) 47.4 % (0.0-13.0); NEUTROPHILS # (AUTO) 3.7 x10^3/uL (2.2-4.8); NEUTROPHILS % (AUTO) 39.4 % (42.0-75.0); RED BLOOD COUNT 4.48 X10^6/uL (4.7-6.0); RED CELL DISTRIBUTION WIDTH 23.2 % (11.6-16.5); WHITE BLOOD COUNT 9.3 X10^3/uL (3.6-10.0)
[2021-12-15 06:20] LABS: ALANINE AMINOTRANSFERASE 17 Units/L (12-78); ALBUMIN 2.3 g/dL (3.4-5.0); ALKALINE PHOSPHATASE 61 Units/L (46-116); ASPARTATE AMINO TRANSFERASE 28 Units/L (15-37); BLOOD UREA NITROGEN 4 mg/dL (7-18); CALCIUM 7.4 mg/dL (8.5-10.1); CHLORIDE 97 mmol/L (98-107); COR CA(FOR HYPOALB) 8.8 mg/dL (8.5-10.1); CREATININE 0.72 mg/dL (0.70-1.30); SODIUM 131 mmol/L (136-145); TOTAL PROTEIN 6.5 g/dL (6.4-8.2); eGFR NON BLACK RACES > 60 (>60)
[2021-12-15 06:27] LABS: ANISOCYTOSIS 2+; PLATELET MORPHOLOGY COMMENT NORMAL (NORMAL); TARGET CELLS 1+
[2021-12-15] MEDS: XOPENEX 1.25 MG/3 ML NEBULE NEB SCH ×4 (09:10→20:20)
[2021-12-15] MEDS: PULMICORT NEB TX 0.5 MG NEB SCH ×2 (09:10→20:20)
[2021-12-15] MEDS ORDERED: ZESTRIL TAB 20 MG ONE (09:54)
[2021-12-15] MEDS: FLONASE NASAL SPRAY ENOSTRIL SCH (09:59)
[2021-12-15] MEDS: TAMIFLU PO SCH ×2 (10:00→21:28)
[2021-12-15] MEDS: FLEXERIL TAB 10 MG PO SCH ×2 (10:00→21:16)
[2021-12-15] MEDS: ZESTRIL TAB 20 MG PO SCH (10:01)
[2021-12-15] MEDS: NICOTINE PATCH TD SCH (10:01)
[2021-12-15] MEDS: ROBITUSSIN DM PO SCH ×4 (10:02→21:28)
[2021-12-15] MEDS: HYDROCHLOROTHIAZIDE 12.5 MG CAP PO SCH (10:02)
[2021-12-15] MEDS: PLETAL PO SCH ×2 (10:04→21:29)
[2021-12-15] MEDS: NS 1,000 ML IV 1,000 ML IV SCH ×2 (10:05→23:47)
[2021-12-15] MEDS: ELIQUIS PO SCH ×2 (10:05→21:16)
[2021-12-15] MEDS: TOPROL XL PO SCH (10:06)
[2021-12-15] MEDS: LEVAQUIN PREMIX IV 750 MG 750 MG/150 ML BAG IV SCH (10:06)
--- NOTE | 2021-12-15 13:14 | PCM.PROG ---
Progress Note Progress Note for Day of Date of Exam: 12/14/21 Subjective Subjective: Pt is a 61 year old male past medical history of Hypertension, Atrial fibrillation, COPD, admitted for Influenza A, Pneumonia, COPD exacerbation. He did have nodule on CT of his chest that is concerning for malignancy and will need to be followed up outpatient. This morning he reports minimal improvement in his breathing. Labs/imaging: Wbc 7.7, Hgb 12.8, Plt 70, Na 132, K 3.1, Creatinine 0.70, Glucose 75, Blood cultures pending, Sputum cultures pending. CT chest was obtained that revealed: Pt is currently requiring 3L nasal cannula supplemental oxygen, IVF 1/2 NS@75ml/h, Antibiotics: IV Levaquin 750mg, Antiviral: Tamiflu. Scheduled bronchodilators. Home medications have been resumed, tussionex prn for cough. Will add IV Solumedrol 40mg daily. Wean/titrate supplemental oxygen as tolerated. Hypokalemia on labs, will replete per protocol. Otherwise, continue with current treatment plan. Continue to closely monitor, follow up labs/imaging. Past Medical Family Social History Allergies: Allergies No Known Allergies Allergy (Verified 11/08/16 09:35) Review of Systems ROS changes noted: See HPI Vital Signs and I&O's Vital Signs: Temperature 98.7 F Pulse Rate [Right Brachial] 101 Pulse Rate 98 Respiratory Rate 20 Blood Pressure [Left Arm] 121/56 Blood Pressure 146/85 O2 Sat by Pulse Oximetry 95 Intake and Output: Intake & Output 12/12/21 12/13/21 12/14/21 12/15/21 23:59 23:59 23:59 23:59 Intake Total 1060 / 1060 3234 / 3234 521 / 521 Output Total 350 / 350 300 / 300 Balance 1060 / 1060 2884 / 2884 221 / 221 Physical Exam Oriented: Normal Eyes: Normal Ear: Normal Nose: Normal Throat: Normal Respiratory: Diminished, Wheezes and Rhonchi Cardiovascular: Normal : Normal Auscultation: Bowel Sounds: Normal Tenderness: Normal Skin: Normal Musculoskeletal: Normal Psychiatric: Normal Mood Description: Calm and Appropriate Affect: Normal Speech Pattern: Clear and Appropriate Laboratory and Diagnostics Result Diagrams: 12/15/21 05:40 12/15/21 05:40 Labs: 12/13/21 07:30 Blood Blood Culture - Preliminary 12/13/21 07:24 Blood Blood Culture - Preliminary 12/13/21 12:56 Sputum - Expectorated Sputum Sputum Culture - Final 12/13/21 12:56 Sputum - Expectorated Sputum - Final Laboratory WBC 9.3 X10^3/uL (3.6-10.0) 12/15/21 05:40 RBC 4.48 X10^6/uL (4.7-6.0) L 12/15/21 05:40 Hgb 12.7 g/dL (13.5-18.0) L 12/15/21 05:40 Hct 38.8 % (42.0-54.0) L 12/15/21 05:40 MCV 86.5 fL (80.0-100.0) 12/15/21 05:40 MCH 28.4 pg (27.0-34.0) 12/15/21 05:40 MCHC 32.8 g/dL (33.0-35.0) L 12/15/21 05:40 RDW 23.2 % (11.6-16.5) H 12/15/21 05:40 Plt Count 61 X10^3/uL (150.0-450.0) L 12/15/21 05:40 Plt Count Comment Decreased (ADEQUATE) 12/15/21 05:40 MPV 9.9 fL (7.4-11.0) 12/15/21 05:40 Neut % (Auto) 39.4 % (42.0-75.0) L 12/15/21 05:40 Lymph % (Auto) 13.0 % (21.0-51.0) L 12/15/21 05:40 [place] % (Auto) 47.4 % (0.0-13.0) H 12/15/21 05:40 Eos % (Auto) 0.0 % (0.9-2.9) L 12/15/21 05:40 Baso % (Auto) 0.2 % (0.2-1.0) 12/15/21 05:40 Neut # (Auto) 3.7 x10^3/uL (2.2-4.8) 12/15/21 05:40 Lymph # (Auto) 1.2 X10^3/uL (1.3-2.9) L 12/15/21 05:40 [place] # (Auto) 4.4 x10^3/uL (0.3-0.8) H 12/15/21 05:40 Eos # (Auto) 0.0 x10^3/uL (0.0-0.2) 12/15/21 05:40 Baso # (Auto) 0.0 X10^3/uL (0.0-0.1) 12/15/21 05:40 Absolute Nucleated RBC 0.0 /100WBC 12/15/21 05:40 Giant Platelets Rare 12/13/21 06:44 Plt Morphology Comment Normal (NORMAL) 12/15/21 05:40 RBC Morphology Abnormal (NORMAL) 12/15/21 05:40 Anisocytosis 2+ A 12/15/21 05:40 Target Cells 1+ A 12/15/21 05:40 Stomatocytes 1+ A 12/13/21 06:44 D-Dimer 0.50 ug/ml (0.0-0.57) 12/13/21 06:44 Sodium 131 mmol/L (136-145) L 12/15/21 05:40 Corrected Sodium TNP 12/15/21 05:40 Potassium 4.4 mmol/L (3.5-5.1) 12/15/21 05:40 Chloride 97 mmol/L (98-107) L 12/15/21 05:40 Carbon Dioxide 31.0 mmol/L (21-32) 12/15/21 05:40 BUN 4 mg/dL (7-18) L 12/15/21 05:40 Creatinine 0.72 mg/dL (0.70-1.30) 12/15/21 05:40 Est GFR (MDRD) Af Amer > 60 (>60) 12/15/21 05:40 Est GFR (MDRD) Non-Af > 60 (>60) 12/15/21 05:40 Glucose 68 mg/dL (65-99) 12/15/21 05:40 Calcium 7.4 mg/dL (8.5-10.1) L 12/15/21 05:40 Corrected Calcium 8.8 mg/dL (8.5-10.1) 12/15/21 05:40 Magnesium 1.6 mg/dL (1.7-2.9) L 12/14/21 05:37 Total Bilirubin 0.60 mg/dL (0.2-1.0) 12/15/21 05:40 AST 28 Units/L (15-37) 12/15/21 05:40 ALT 17 Units/L (12-78) 12/15/21 05:40 Alkaline Phosphatase 61 Units/L (46-116) 12/15/21 05:40 Creatine Kinase 205 Units/L (39-308) 12/13/21 06:44 Troponin I High Sens 23.5 ng/L (4.0-60.0) 12/13/21 06:44 B-Natriuretic Peptide 179 pg/mL (0-79) H 12/13/21 06:44 Total Protein 6.5 g/dL (6.4-8.2) 12/15/21 05:40 Albumin 2.3 g/dL (3.4-5.0) L 12/15/21 05:40 Globulin 4.2 g/dL (2.5-4.5) 12/15/21 05:40 Albumin/Globulin Ratio 0.5 Ratio (1.1-2.1) L 12/15/21 05:40 SARS-CoV-2 (PCR) Negative (NEGATIVE) 12/13/21 07:30 Influenza Type A (PCR) Positive (NEGATIVE) A 12/13/21 07:30 Influenza Type B (PCR) Negative (NEGATIVE) 12/13/21 07:30 RSV (PCR) Negative (NEGATIVE) 12/13/21 07:30 Plan (1) Influenza A: Status: Acute (2) Pneumonia: Status: Acute (3) Lung nodule: Status: Acute (4) A-fib: Status: Acute (5) COPD exacerbation: Status: Acute (6) Hypokalemia: Status: Acute
--- NOTE | 2021-12-15 14:02 | RAD ---
HISTORYPNEUMONIA FOLLOW UPSTUDYCHEST x-ray, 1 VIEWCOMPARISONX-ray 12/13/2021FINDINGSHeart is normal in size. Hyperinflation of the lungs is probably from COPD. There is probable underlying chronic interstitial lung disease.There is improvement of vague right upper lobe infiltrate since prior study. It has probably resolved. There is a persistent nodular density projected overlying the left midlung which could possibly be a nipple shadow. A similar densities projected overlying the right midlung at the same level.No pneumothorax or pleural effusion is seen.IMPRESSIONMarked improvement or resolution of right upper lobe infiltrate.Nodular densities in the bilateral lungs are slightly asymmetric but are most likely nipple shadows. Recommend follow-up AP chest x-ray with nipple markers.Electronically signed by: Krishna Goldman (Dec 15, 2021 14:00:34)
[2021-12-15] MEDS: SOLU-Medrol 40 MG VIAL IVP SCH ×2 (14:59→21:14)
--- NOTE | 2021-12-15 16:36 | PCM.PROG ---
Progress Note Progress Note for Day of Date of Exam: 12/15/21 Subjective Subjective: Pt is a 61 year old male past medical history of Hypertension, Atrial fibrillation, COPD, admitted for Influenza A, Pneumonia, COPD exacerbation. He did have nodule on CT of his chest that is concerning for malignancy and will need to be followed up outpatient. This morning he reports not feeling any better compared to yesterday. No acute events overnight. Labs/imaging: Wbc 7.7, Hgb 12.8, Plt 70, Na 132, K 3.1, Creatinine 0.70, Glucose 75, Blood cultures pending, Sputum cultures pending. CXR was obtained that revealed: marked improvement or resolution of right upper lobe infiltrate. Pt is currently requiring 3L nasal cannula supplemental oxygen, receiving IVF 1/2 NS@75ml/h, Antibiotics: IV Levaquin 750mg, Antiviral:Tamiflu. Scheduled bronchodilators. Home medications, tussionex prn for cough. Will increase IV Solumedrol 40mg to q8h. Pt has hyponatremia on labs, change IVF to NS. Order Echo due to continued shortness of breath and elevated BNP. Wean/titrate supplemental oxygen as tolerated. Otherwise, continue with current treatment plan. Continue to closely monitor, follow up labs/imaging. Past Medical Family Social History Allergies: Allergies No Known Allergies Allergy (Verified 11/08/16 09:35) Review of Systems ROS changes noted: See HPI Vital Signs and I&O's Vital Signs: Temperature 98.1 F Pulse Rate [Right Brachial] 117 Pulse Rate 98 Respiratory Rate 20 Blood Pressure [Left Arm] 138/68 Blood Pressure 146/85 O2 Sat by Pulse Oximetry 97 Intake and Output: Intake & Output 12/12/21 12/13/21 12/14/21 12/15/21 23:59 23:59 23:59 23:59 Intake Total 1060 / 1060 3234 / 3234 961 / 961 Output Total 350 / 350 1250 / 1250 Balance 1060 / 1060 2884 / 2884 -289 / -289 Physical Exam Oriented: Normal Eyes: Normal Ear: Normal Nose: Normal Throat: Normal Respiratory: Diminished, Wheezes and Rhonchi Cardiovascular: Normal : Normal Auscultation: Bowel Sounds: Normal Tenderness: Normal Skin: Normal Musculoskeletal: Normal Psychiatric: Normal Mood Description: Calm and Appropriate Affect: Normal Speech Pattern: Clear and Appropriate Laboratory and Diagnostics Result Diagrams: 10/05/22 05:40 12/15/21 05:40 Labs: 12/13/21 07:30 Blood Blood Culture - Preliminary 12/13/21 07:24 Blood Blood Culture - Preliminary 12/13/21 12:56 Sputum - Expectorated Sputum Sputum Culture - Final 12/13/21 12:56 Sputum - Expectorated Sputum - Final Laboratory WBC 9.3 X10^3/uL (3.6-10.0) 12/15/21 05:40 RBC 4.48 X10^6/uL (4.7-6.0) L 12/15/21 05:40 Hgb 12.7 g/dL (13.5-18.0) L 12/15/21 05:40 Hct 38.8 % (42.0-54.0) L 12/15/21 05:40 MCV 86.5 fL (80.0-100.0) 12/15/21 05:40 MCH 28.4 pg (27.0-34.0) 12/15/21 05:40 MCHC 32.8 g/dL (33.0-35.0) L 12/15/21 05:40 RDW 23.2 % (11.6-16.5) H 12/15/21 05:40 Plt Count 61 X10^3/uL (150.0-450.0) L 12/15/21 05:40 Plt Count Comment Decreased (ADEQUATE) 12/15/21 05:40 MPV 9.9 fL (7.4-11.0) 12/15/21 05:40 Neut % (Auto) 39.4 % (42.0-75.0) L 12/15/21 05:40 Lymph % (Auto) 13.0 % (21.0-51.0) L 12/15/21 05:40 [place] % (Auto) 47.4 % (0.0-13.0) H 12/15/21 05:40 Eos % (Auto) 0.0 % (0.9-2.9) L 12/15/21 05:40 Baso % (Auto) 0.2 % (0.2-1.0) 12/15/21 05:40 Neut # (Auto) 3.7 x10^3/uL (2.2-4.8) 12/15/21 05:40 Lymph # (Auto) 1.2 X10^3/uL (1.3-2.9) L 12/15/21 05:40 [place] # (Auto) 4.4 x10^3/uL (0.3-0.8) H 12/15/21 05:40 Eos # (Auto) 0.0 x10^3/uL (0.0-0.2) 12/15/21 05:40 Baso # (Auto) 0.0 X10^3/uL (0.0-0.1) 12/15/21 05:40 Absolute Nucleated RBC 0.0 /100WBC 12/15/21 05:40 Giant Platelets Rare 12/13/21 06:44 Plt Morphology Comment Normal (NORMAL) 12/15/21 05:40 RBC Morphology Abnormal (NORMAL) 12/15/21 05:40 Anisocytosis 2+ A 12/15/21 05:40 Target Cells 1+ A 12/15/21 05:40 Stomatocytes 1+ A 12/13/21 06:44 D-Dimer 0.50 ug/ml (0.0-0.57) 12/13/21 06:44 Sodium 131 mmol/L (136-145) L 12/15/21 05:40 Corrected Sodium TNP 12/15/21 05:40 Potassium 4.4 mmol/L (3.5-5.1) 12/15/21 05:40 Chloride 97 mmol/L (98-107) L 12/15/21 05:40 Carbon Dioxide 31.0 mmol/L (21-32) 12/15/21 05:40 BUN 4 mg/dL (7-18) L 12/15/21 05:40 Creatinine 0.72 mg/dL (0.70-1.30) 12/15/21 05:40 Est GFR (MDRD) Af Amer > 60 (>60) 12/15/21 05:40 Est GFR (MDRD) Non-Af > 60 (>60) 12/15/21 05:40 Glucose 68 mg/dL (65-99) 12/15/21 05:40 Calcium 7.4 mg/dL (8.5-10.1) L 12/15/21 05:40 Corrected Calcium 8.8 mg/dL (8.5-10.1) 12/15/21 05:40 Magnesium 1.6 mg/dL (1.7-2.9) L 12/14/21 05:37 Total Bilirubin 0.60 mg/dL (0.2-1.0) 12/15/21 05:40 AST 28 Units/L (15-37) 12/15/21 05:40 ALT 17 Units/L (12-78) 12/15/21 05:40 Alkaline Phosphatase 61 Units/L (46-116) 12/15/21 05:40 Creatine Kinase 205 Units/L (39-308) 12/13/21 06:44 Troponin I High Sens 23.5 ng/L (4.0-60.0) 12/13/21 06:44 B-Natriuretic Peptide 179 pg/mL (0-79) H 12/13/21 06:44 Total Protein 6.5 g/dL (6.4-8.2) 12/15/21 05:40 Albumin 2.3 g/dL (3.4-5.0) L 12/15/21 05:40 Globulin 4.2 g/dL (2.5-4.5) 12/15/21 05:40 Albumin/Globulin Ratio 0.5 Ratio (1.1-2.1) L 12/15/21 05:40 SARS-CoV-2 (PCR) Negative (NEGATIVE) 12/13/21 07:30 Influenza Type A (PCR) Positive (NEGATIVE) A 12/13/21 07:30 Influenza Type B (PCR) Negative (NEGATIVE) 12/13/21 07:30 RSV (PCR) Negative (NEGATIVE) 12/13/21 07:30 Plan (1) Influenza A: Status: Acute (2) Pneumonia: Status: Acute (3) Lung nodule: Status: Acute (4) A-fib: Status: Acute (5) COPD exacerbation: Status: Acute (6) Hypokalemia: Status: Acute
[2021-12-15] MEDS: LIPITOR TAB 40 MG PO SCH (21:27)
[2021-12-16] MEDS: NS 1,000 ML IV 1,000 ML IV SCH ×3 (02:43→20:33)
[2021-12-16 05:13] LABS: BASOPHILS % (AUTO) 0.3 % (0.2-1.0); HEMATOCRIT 37.5 % (42.0-54.0); HEMOGLOBIN 12.6 g/dL (13.5-18.0); LYMPHOCYTES # (AUTO) 0.4 X10^3/uL (1.3-2.9); LYMPHOCYTES % (AUTO) 16.7 % (21.0-51.0); MEAN CORPUSCULAR HEMOGLOBIN 29.1 pg (27.0-34.0); MEAN CORPUSCULAR HGB CONC 33.7 g/dL (33.0-35.0); MEAN CORPUSCULAR VOLUME 86.4 fL (80.0-100.0); MEAN PLATELET VOLUME 9.3 fL (7.4-11.0); MONOCYTES # (AUTO) 0.3 x10^3/uL (0.3-0.8); MONOCYTES % (AUTO) 12.7 % (0.0-13.0); NEUTROPHILS # (AUTO) 1.7 x10^3/uL (2.2-4.8); NEUTROPHILS % (AUTO) 70.3 % (42.0-75.0); RED BLOOD COUNT 4.33 X10^6/uL (4.7-6.0); RED CELL DISTRIBUTION WIDTH 22.4 % (11.6-16.5); WHITE BLOOD COUNT 2.3 X10^3/uL (3.6-10.0)
[2021-12-16 05:21] LABS: ALANINE AMINOTRANSFERASE 15 Units/L (12-78); ALBUMIN 2.3 g/dL (3.4-5.0); ALKALINE PHOSPHATASE 63 Units/L (46-116); ASPARTATE AMINO TRANSFERASE 21 Units/L (15-37); BLOOD UREA NITROGEN 5 mg/dL (7-18); CALCIUM 7.8 mg/dL (8.5-10.1); CARBON DIOXIDE 31.5 mmol/L (21-32); CHLORIDE 97 mmol/L (98-107); COR CA(FOR HYPOALB) 9.2 mg/dL (8.5-10.1); COR NA(FOR HYPERGLY) 134 mmol/L (136-145); CREATININE 0.77 mg/dL (0.70-1.30); SODIUM 133 mmol/L (136-145); TOTAL PROTEIN 6.8 g/dL (6.4-8.2); eGFR NON BLACK RACES > 60 (>60)
[2021-12-16 05:25] LABS: ANISOCYTOSIS 2+; GIANT PLATELET RARE; PLATELET MORPHOLOGY COMMENT ABNORMAL (NORMAL); TARGET CELLS 1+
[2021-12-16] MEDS: SOLU-Medrol 40 MG VIAL IVP SCH ×3 (05:49→21:02)
[2021-12-16] MEDS: K-DUR TAB 20 MEQ PO PRN (06:33)
[2021-12-16] MEDS ORDERED: ZESTRIL TAB 20 MG ONE (08:00)
[2021-12-16] MEDS: XOPENEX 1.25 MG/3 ML NEBULE NEB SCH ×4 (08:45→20:55)
[2021-12-16] MEDS: PULMICORT NEB TX 0.5 MG NEB SCH ×2 (08:45→20:55)
[2021-12-16] MEDS: NICOTINE PATCH TD SCH (09:00)
[2021-12-16] MEDS: ROBITUSSIN DM PO SCH ×4 (09:01→20:34)
[2021-12-16] MEDS: HYDROCHLOROTHIAZIDE 12.5 MG CAP PO SCH (09:01)
[2021-12-16] MEDS: TAMIFLU PO SCH ×2 (09:02→20:36)
[2021-12-16] MEDS: ELIQUIS PO SCH ×2 (09:03→20:35)
[2021-12-16] MEDS: FLEXERIL TAB 10 MG PO SCH ×2 (09:03→20:35)
[2021-12-16] MEDS: ZESTRIL TAB 20 MG PO SCH (09:04)
[2021-12-16] MEDS: TOPROL XL PO SCH (09:04)
[2021-12-16] MEDS: PLETAL PO SCH ×2 (09:04→20:45)
[2021-12-16] MEDS: NORCO 10/325 TAB PO PRN ×2 (09:18→20:36)
[2021-12-16] MEDS: LEVAQUIN PREMIX IV 750 MG 750 MG/150 ML BAG IV SCH (10:00)
[2021-12-16] MEDS: FLONASE NASAL SPRAY ENOSTRIL SCH (14:01)
[2021-12-16] MEDS: MAGNESIUM SULFATE 1 GRAM/100 mL PREMIX 1 G/100 ML BAG IV PRN ×2 (15:21→17:42)
[2021-12-16] MEDS: LIPITOR TAB 40 MG PO SCH (20:35)
[2021-12-17] MEDS: NS 1,000 ML IV 1,000 ML IV SCH (03:58)
[2021-12-17] MEDS: SOLU-Medrol 40 MG VIAL IVP SCH (05:43)
[2021-12-17 06:39] LABS: BASOPHILS % (AUTO) 0.2 % (0.2-1.0); HEMATOCRIT 34.5 % (42.0-54.0); HEMOGLOBIN 11.4 g/dL (13.5-18.0); LYMPHOCYTES # (AUTO) 0.5 X10^3/uL (1.3-2.9); LYMPHOCYTES % (AUTO) 8.5 % (21.0-51.0); MEAN CORPUSCULAR HEMOGLOBIN 28.3 pg (27.0-34.0); MEAN CORPUSCULAR HGB CONC 33.1 g/dL (33.0-35.0); MEAN CORPUSCULAR VOLUME 85.6 fL (80.0-100.0); MEAN PLATELET VOLUME 9.5 fL (7.4-11.0); MONOCYTES # (AUTO) 1.1 x10^3/uL (0.3-0.8); MONOCYTES % (AUTO) 17.8 % (0.0-13.0); NEUTROPHILS # (AUTO) 4.4 x10^3/uL (2.2-4.8); NEUTROPHILS % (AUTO) 73.5 % (42.0-75.0); RED BLOOD COUNT 4.04 X10^6/uL (4.7-6.0); RED CELL DISTRIBUTION WIDTH 22.5 % (11.6-16.5)
[2021-12-17 06:45] LABS: ALANINE AMINOTRANSFERASE 18 Units/L (12-78); ALBUMIN 2.1 g/dL (3.4-5.0); ALKALINE PHOSPHATASE 53 Units/L (46-116); ASPARTATE AMINO TRANSFERASE 22 Units/L (15-37); BLOOD UREA NITROGEN 5 mg/dL (7-18); CALCIUM 7.7 mg/dL (8.5-10.1); CARBON DIOXIDE 31.6 mmol/L (21-32); CHLORIDE 97 mmol/L (98-107); COR CA(FOR HYPOALB) 9.2 mg/dL (8.5-10.1); COR NA(FOR HYPERGLY) 133 mmol/L (136-145); CREATININE 0.62 mg/dL (0.70-1.30); MAGNESIUM 1.9 mg/dL (1.7-2.9); SODIUM 132 mmol/L (136-145); TOTAL PROTEIN 6.1 g/dL (6.4-8.2); eGFR NON BLACK RACES > 60 (>60)
[2021-12-17 07:12] LABS: ANISOCYTOSIS 2+; OVALOCYTES SLIGHT; PLATELET MORPHOLOGY COMMENT NORMAL (NORMAL); TARGET CELLS 1+
[2021-12-17] MEDS: PULMICORT NEB TX 0.5 MG NEB SCH (08:30)
[2021-12-17] MEDS: XOPENEX 1.25 MG/3 ML NEBULE NEB SCH (08:30)
[2021-12-17] MEDS ORDERED: ZESTRIL TAB 20 MG ONE (08:54)
[2021-12-17] MEDS: TOPROL XL PO SCH (09:19)
[2021-12-17] MEDS: HYDROCHLOROTHIAZIDE 12.5 MG CAP PO SCH (09:19)
[2021-12-17] MEDS: LEVAQUIN PREMIX IV 750 MG 750 MG/150 ML BAG IV SCH (09:19)
[2021-12-17] MEDS: PLETAL PO SCH (09:19)
[2021-12-17] MEDS: TAMIFLU PO SCH (09:19)
[2021-12-17] MEDS: ROBITUSSIN DM PO SCH (09:19)
[2021-12-17] MEDS: FLEXERIL TAB 10 MG PO SCH (09:20)
[2021-12-17] MEDS: ZESTRIL TAB 20 MG PO SCH (09:20)
[2021-12-17] MEDS: ELIQUIS PO SCH (09:20)
[2021-12-17] MEDS: NICOTINE PATCH TD SCH (09:21)
[2021-12-17] MEDS: FLONASE NASAL SPRAY ENOSTRIL SCH (09:21)
--- NOTE | 2021-12-17 09:49 | W.DIS.FURT ---
Summary of Discharge Discharge Summary of Date Date of Exam: 12/17/21 Admission Date Date of Admission: 12/13/21 Admission Diagnosis Patient Problems (Updated 12/15/21 @ 16:33 by Brooks Villegas) A-fib (Acute) I48.91 Pneumonia (Acute) J18.9 Lung nodule (Acute) R91.1 Hospital Course: Pt is a 61 year old male past medical history of Hypertension, Atrial fibrillation, COPD, admitted for Influenza A, Pneumonia, COPD exacerbation. His hospital/treatment course included: 2L nasal cannula supplemental oxygen, IVF NS@75ml/h, Antibiotics: IV Levaquin 750mg, Antiviral: Tamiflu. Scheduled bronchodilators. Home medications, tussionex prn for cough. IV Solumedrol 40mg to q8h. Echo performed, results are still pending, no signs of chf exacerbation. Pt responded well to treatments and oxygen was weaned down, however will continue to need home oxygen of 2L. He did have 12mm spiculated nodule left lower lobe on CT of his chest that is concerning for malignancy and will need to be followed up outpatient. Outpatient referral placed to pulmonology. Rx prednisone. Pt completed antibiotic course inpatient. Pt discharged in stable condition. Instructed to follow up with pulmonology and pcp in 1 week. Vital Signs: Vital Signs (72 hours) 12/14/21 11:54 12/14/21 11:56 12/14/21 12:56 Temperature 97.8 F Pulse Rate Pulse Rate [Right Brachial] 111 H Respiratory Rate 20 20 20 Blood Pressure [Left Arm] 112/63 O2 Sat by Pulse Oximetry 98 Oxygen Delivery Method Nasal Cannula Oxygen Flow Rate 3 FIO2% 12/14/21 15:16 12/14/21 20:00 12/14/21 20:48 Temperature 98.1 F 98.5 F Pulse Rate 98 H Pulse Rate [Right Brachial] 106 H 99 H Respiratory Rate 18 22 Blood Pressure [Left Arm] 99/59 118/66 O2 Sat by Pulse Oximetry 99 98 99 Oxygen Delivery Method Nasal Cannula Nasal Cannula Oxygen Flow Rate 3 3 FIO2% 12/14/21 20:48 12/14/21 19:00 12/15/21 00:00 Temperature 98.4 F Pulse Rate Pulse Rate [Right Brachial] 99 H Respiratory Rate 24 Blood Pressure [Left Arm] 119/68 O2 Sat by Pulse Oximetry 96 Oxygen Delivery Method Nasal Cannula Nasal Cannula Nasal Cannula Oxygen Flow Rate 2 3 3 FIO2% 28 12/15/21 04:00 12/15/21 09:10 12/15/21 09:10 Temperature 98.1 F Pulse Rate Pulse Rate [Right Brachial] 85 Respiratory Rate 18 Blood Pressure [Left Arm] 119/61 O2 Sat by Pulse Oximetry 97 93 L Oxygen Delivery Method Nasal Cannula Nasal Cannula Oxygen Flow Rate 3 2 FIO2% 28 12/15/21 07:00 12/15/21 08:00 12/15/21 11:45 Temperature 97.5 F L 98.7 F Pulse Rate Pulse Rate [Right Brachial] 91 H 101 H Respiratory Rate 20 20 Blood Pressure [Left Arm] 143/65 121/56 O2 Sat by Pulse Oximetry 96 95 Oxygen Delivery Method Nasal Cannula Nasal Cannula Nasal Cannula Oxygen Flow Rate 3 3 3 FIO2% 12/15/21 16:00 12/15/21 19:00 12/15/21 20:00 Temperature 98.1 F 98.3 F Pulse Rate Pulse Rate [Right Brachial] 117 H 97 H Respiratory Rate 20 18 Blood Pressure [Left Arm] 138/68 104/60 O2 Sat by Pulse Oximetry 97 96 Oxygen Delivery Method Nasal Cannula Nasal Cannula Nasal Cannula Oxygen Flow Rate 3 2 2 FIO2% 12/15/21 20:20 12/15/21 20:20 12/15/21 23:47 Temperature 97.9 F Pulse Rate 95 H Pulse Rate [Right Brachial] 93 H Respiratory Rate 20 Blood Pressure [Left Arm] 112/66 O2 Sat by Pulse Oximetry 95 95 Oxygen Delivery Method Nasal Cannula Oxygen Flow Rate 2 FIO2% 28 12/16/21 00:23 12/16/21 04:00 12/16/21 08:00 Temperature 97.5 F L 97.8 F Pulse Rate Pulse Rate [Right Brachial] 88 81 Respiratory Rate 18 20 Blood Pressure [Left Arm] 132/79 138/59 O2 Sat by Pulse Oximetry 97 96 Oxygen Delivery Method Nasal Cannula Nasal Cannula Nasal Cannula Oxygen Flow Rate 2 2 2 FIO2% 28 12/16/21 08:45 12/16/21 08:45 12/16/21 09:18 Temperature Pulse Rate 81 Pulse Rate [Right Brachial] Respiratory Rate 20 Blood Pressure [Left Arm] O2 Sat by Pulse Oximetry 96 Oxygen Delivery Method Nasal Cannula Oxygen Flow Rate 2 FIO2% 28 12/16/21 07:00 12/16/21 12:39 12/16/21 12:00 Temperature 98.0 F Pulse Rate 88 Pulse Rate [Right Brachial] 96 H Respiratory Rate 18 Blood Pressure [Left Arm] 114/57 O2 Sat by Pulse Oximetry 94 L 93 L Oxygen Delivery Method Nasal Cannula Nasal Cannula Oxygen Flow Rate 2 2 FIO2% 12/16/21 10:18 12/16/21 16:00 12/16/21 19:00 Temperature 98.4 F Pulse Rate Pulse Rate [Right Brachial] 105 H Respiratory Rate 20 20 Blood Pressure [Left Arm] 140/68 O2 Sat by Pulse Oximetry 93 L Oxygen Delivery Method Nasal Cannula Nasal Cannula Oxygen Flow Rate 2 2.5 FIO2% 12/16/21 20:00 12/16/21 20:36 12/16/21 21:36 Temperature 98.1 F Pulse Rate Pulse Rate [Right Brachial] 80 Respiratory Rate 18 20 20 Blood Pressure [Left Arm] 109/58 O2 Sat by Pulse Oximetry 95 Oxygen Delivery Method Nasal Cannula Oxygen Flow Rate 2 FIO2% 12/16/21 20:55 12/16/21 20:55 12/16/21 23:49 Temperature 97.7 F Pulse Rate 87 Pulse Rate [Right Brachial] 83 Respiratory Rate 18 Blood Pressure [Left Arm] 94/51 O2 Sat by Pulse Oximetry 95 97 Oxygen Delivery Method Nasal Cannula Nasal Cannula Oxygen Flow Rate 2 2 FIO2% 28 12/17/21 04:00 12/17/21 07:00 12/17/21 08:00 Temperature 97.7 F 98.1 F Pulse Rate Pulse Rate [Right Brachial] 110 H Respiratory Rate 18 20 Blood Pressure [Left Arm] 109/61 113/69 O2 Sat by Pulse Oximetry 97 96 Oxygen Delivery Method Nasal Cannula Nasal Cannula Nasal Cannula Oxygen Flow Rate 2 2.5 2 FIO2% Labs: Laboratory Last Values WBC 6.0 X10^3/uL (3.6-10.0) 12/17/21 05:42 RBC 4.04 X10^6/uL (4.7-6.0) L 12/17/21 05:42 Hgb 11.4 g/dL (13.5-18.0) L 12/17/21 05:42 Hct 34.5 % (42.0-54.0) L 12/17/21 05:42 MCV 85.6 fL (80.0-100.0) 12/17/21 05:42 MCH 28.3 pg (27.0-34.0) 12/17/21 05:42 MCHC 33.1 g/dL (33.0-35.0) 12/17/21 05:42 RDW 22.5 % (11.6-16.5) H 12/17/21 05:42 Plt Count 64 X10^3/uL (150.0-450.0) L 12/17/21 05:42 Plt Count Comment Decreased (ADEQUATE) 12/17/21 05:42 MPV 9.5 fL (7.4-11.0) 12/17/21 05:42 Neut % (Auto) 73.5 % (42.0-75.0) 12/17/21 05:42 Lymph % (Auto) 8.5 % (21.0-51.0) L 12/17/21 05:42 [place] % (Auto) 17.8 % (0.0-13.0) H 12/17/21 05:42 Eos % (Auto) 0.0 % (0.9-2.9) L 12/17/21 05:42 Baso % (Auto) 0.2 % (0.2-1.0) 12/17/21 05:42 Neut # (Auto) 4.4 x10^3/uL (2.2-4.8) 12/17/21 05:42 Lymph # (Auto) 0.5 X10^3/uL (1.3-2.9) L 12/17/21 05:42 [place] # (Auto) 1.1 x10^3/uL (0.3-0.8) H 12/17/21 05:42 Eos # (Auto) 0.0 x10^3/uL (0.0-0.2) 12/17/21 05:42 Baso # (Auto) 0.0 X10^3/uL (0.0-0.1) 12/17/21 05:42 Absolute Nucleated RBC 0.1 /100WBC 12/17/21 05:42 Giant Platelets Rare 12/16/21 04:40 Plt Morphology Comment Normal (NORMAL) 12/17/21 05:42 RBC Morphology Abnormal (NORMAL) 12/17/21 05:42 Anisocytosis 2+ A 12/17/21 05:42 Target Cells 1+ A 12/17/21 05:42 Ovalocytes Slight A 12/17/21 05:42 Stomatocytes 1+ A 12/13/21 06:44 Smear Path Review See note 12/13/21 06:44 D-Dimer 0.50 ug/ml (0.0-0.57) 12/13/21 06:44 Sodium 132 mmol/L (136-145) L 12/17/21 05:42 Corrected Sodium 133 mmol/L (136-145) L 12/17/21 05:42 Potassium 3.1 mmol/L (3.5-5.1) L 12/17/21 05:42 Chloride 97 mmol/L (98-107) L 12/17/21 05:42 Carbon Dioxide 31.6 mmol/L (21-32) 12/17/21 05:42 BUN 5 mg/dL (7-18) L 12/17/21 05:42 Creatinine 0.62 mg/dL (0.70-1.30) L 12/17/21 05:42 Est GFR (MDRD) Af Amer > 60 (>60) 12/17/21 05:42 Est GFR (MDRD) Non-Af > 60 (>60) 12/17/21 05:42 Glucose 134 mg/dL (65-99) H 12/17/21 05:42 Calcium 7.7 mg/dL (8.5-10.1) L 12/17/21 05:42 Corrected Calcium 9.2 mg/dL (8.5-10.1) 12/17/21 05:42 Magnesium 1.9 mg/dL (1.7-2.9) 12/17/21 05:42 Total Bilirubin 0.20 mg/dL (0.2-1.0) 12/17/21 05:42 AST 22 Units/L (15-37) 12/17/21 05:42 ALT 18 Units/L (12-78) 12/17/21 05:42 Alkaline Phosphatase 53 Units/L (46-116) 12/17/21 05:42 Creatine Kinase 205 Units/L (39-308) 12/13/21 06:44 Troponin I High Sens 23.5 ng/L (4.0-60.0) 12/13/21 06:44 B-Natriuretic Peptide 179 pg/mL (0-79) H 12/13/21 06:44 Total Protein 6.1 g/dL (6.4-8.2) L 12/17/21 05:42 Albumin 2.1 g/dL (3.4-5.0) L 12/17/21 05:42 Globulin 4.0 g/dL (2.5-4.5) 12/17/21 05:42 Albumin/Globulin Ratio 0.5 Ratio (1.1-2.1) L 12/17/21 05:42 SARS-CoV-2 (PCR) Negative (NEGATIVE) 12/13/21 07:30 Influenza Type A (PCR) Positive (NEGATIVE) A 12/13/21 07:30 Influenza Type B (PCR) Negative (NEGATIVE) 12/13/21 07:30 RSV (PCR) Negative (NEGATIVE) 12/13/21 07:30 Reason For Visit: PNEUMONIA, PULMONARY NODULE, FLU A, A-FIB, HTN Discharge Date Discharge Date: 12/17/21 Discharge Diagnosis All Active Problems (Updated 12/15/21 @ 16:33 by Brooks Villegas) Hypokalemia (Acute) COPD exacerbation (Acute) Influenza A (Acute) Shingles rash (Acute) A-fib (Acute) Chest pain (Acute) Acute low back pain due to trauma (Acute) Pneumonia (Acute) Lung nodule (Acute) Plan of Treatment: Continue with present treatment and follow up plan. Pt is to keep follow up appointment as instructed and take medications as ordered. Discharge Medications Discharge Medications: No Known Allergies Allergy (Verified 11/08/16 09:35) CONTINUE taking the following medications albuterol sulfate 90 mcg/actuation aerosol inhaler (ProAir HFA) 1 puff inhalation Q4HR 12/13/21 [History] apixaban 5 mg tablet (Eliquis) 1 tab PO BID 12/13/21 [History] atorvastatin 40 mg tablet 1 tab PO QDAY PRN 12/13/21 [History] budesonide-formoterol HFA 160 mcg-4.5 mcg/actuation aerosol inhaler (Symbicort) 2 puff inhalation BID 12/13/21 [History] cyclobenzaprine 10 mg tablet 1 tab PO BID PRN 12/13/21 [History] fluticasone propionate 50 mcg/actuation nasal spray,suspension 1 spray i ntranasal QDAY 12/13/21 [History] hydrocodone 10 mg-acetaminophen 325 mg tablet 1 tab PO TID PRN 12/13/21 [History] ipratropium 20 mcg-albuterol 100 mcg/actuation mist for inhalation (Combivent Respimat) 1 puff inhalation QID PRN 12/13/21 [History] lactulose 10 gram/15 mL oral solution 15 ml PO QDAY PRN constipation 12/13/21 [History] lisinopril 20 mg-hydrochlorothiazide 12.5 mg tablet 1 tab PO QDAY 12/13/21 [History] New Prescriptions hydrocodone 10 mg-chlorpheniramine 8 mg/5 mL oral susp extend.rel 12hr 5 ml PO Q12H PRN 15 days #150 mL 12/17/21 [Rx] levalbuterol HCl 1.25 mg/3 mL solution for nebulization 1.25 mg (3 mL) NEB QIDRESP 30 days #360 mL 12/17/21 [Rx] metoprolol succinate 25 mg tablet,extended release 24 hr 25 mg PO DAILY 30 days #30 tabs 12/17/21 [Rx] prednisone 20 mg tablet 40 mg PO QDAY 3 days #6 tabs 12/17/21 [Rx] Discharge Disposition Discharge Disposition: Home Discharge Condition: Stable Discharge Plan Discharge Plan Hospital Course: Pt is a 61 year old male past medical history of Hypertension, Atrial fibrillation, COPD, admitted for Influenza A, Pneumonia, COPD exacerbation. His hospital/treatment course included: 2L nasal cannula supplemental oxygen, IVF NS@75ml/h, Antibiotics: IV Levaquin 750mg, Antiviral: Tamiflu. Scheduled bronchodilators. Home medications, tussionex prn for cough. IV Solumedrol 40mg to q8h. Echo performed, results are still pending, no signs of chf exacerbation. Pt responded well to treatments and oxygen was weaned down, however will continue to need home oxygen of 2L. He did have 12mm spiculated nodule left lower lobe on CT of his chest that is concerning for malignancy and will need to be followed up outpatient. Outpatient referral placed to pulmonology. Rx prednisone. Pt completed antibiotic course inpatient. Pt discharged in stable condition. Instructed to follow up with pulmonology and pcp in 1 week. Patient Disposition: HOME, SELF-CARE Condition: Stable Health Concerns: Post Hospitalization: new medications and changes needed to prevent readmission or further decline. Pt educated and given instructions on all concerns. Care Plan Goals: Problem: Infection Goal: Temperature within normal limits. Resolved infection. Instructions: Follow provided instructions. Follow up with primary physician as directed. Contact primary care physician or report to the closest Emergency Room if condition worsens. Plan of Treatment: Continue with present treatment and follow up plan. Pt is to keep follow up appointment as instructed and take medications as ordered. Prescriptions: New metoprolol succinate 25 mg Tablet Extended Release 24 Hr 25 mg PO DAILY 30 Days Qty: 30 0RF levalbuterol HCl 1.25 mg/3 mL Solution For Nebulization 1.25 mg NEB QIDRESP 30 Days Qty: 360 0RF hydrocodone-chlorpheniramine 10-8 mg/5 mL Suspension,Extended Rel 12 Hr 5 ml PO Q12H MDD 10mL PRN15 Days Qty: 150 0RF Continued cyclobenzaprine 10 mg tablet 1 tab PO BID PRN atorvastatin 40 mg tablet 1 tab PO QDAY PRN lisinopril-hydrochlorothiazide 20-12.5 mg tablet 1 tab PO QDAY hydrocodone-acetaminophen 10-325 mg tablet 1 tab PO TID PRN albuterol sulfate [ProAir HFA] 90 mcg/actuation HFA aerosol inhaler 1 puff inhalation Q4HR fluticasone propionate 50 mcg/actuation spray,suspension 1 spray INTRANASAL QDAY lactulose 10 gram/15 mL solution 15 ml PO QDAY PRN (Reason: constipation) budesonide-formoterol [Symbicort] 160-4.5 mcg/actuation HFA aerosol inhaler 2 puff inhalation BID Eliquis 5 mg tablet 1 tab PO BID Combivent Respimat 20-100 mcg/actuation mist 1 puff inhalation QID PRN Discontinued azithromycin 250 mg tablet 1 tab PO QDAY prednisone 50 mg tablet 1 tab PO QDAY Follow ups/Referrals Follow ups/Referrals: [facility] [Other] (Referral made via phone on 12/15/21 @3pm. Staff will contact patient to set up appointment.) [facility] [Other] (Order sent on 12/16/21 @6089) LISE GARCIA [REFERRING] - (Pulmonology referral sent on 12/17 - Office will call you with an appointment) LIUDMILA COELHO [Primary Care Provider] - 10/14/22 9:00 am Instructions Instructions: Shortness of Breath, Adult, Guub-rg-Ioxb, Influenza, Adult, Vyex-nc-Vrfv, How to Use an Incentive Spirometer, How to Use a Nebulizer, Adult, Chronic Obstructive Pulmonary Disease, Iswk-jk-Djeg, Home Oxygen Use, Adult, Pulmonary Nodule, Nviz-cw-Cegf, You've Been Prescribed an Antibiotic in the Hospital for an Infection - CDC, Tobacco Use Disorder, COPD and Physical Activity, Steps to Quit Smoking, Atrial Fibrillation, Fhfx-ak-Uqty, Community- Acquired Pneumonia, Adult, Gdrr-wn-Qaty Stand Alone Forms: Precautions for COVID19, [facility], Patient Portal, Social Distancing
[2021-12-17] MEDS ORDERED: MAALOX or MYLANTA PO PRN (10:19)
[2021-12-17] MEDS: K-DUR TAB 20 MEQ PO PRN (10:30)
[2021-12-17 11:56] VITALS: BP 96/53
--- NOTE | 2021-12-20 11:56 | PCM.PROG ---
Progress Note Progress Note for Day of Date of Exam: 12/16/21 Subjective Subjective: Pt is a 61 year old male past medical history of Hypertension, Atrial fibrillation, COPD, admitted for Influenza A, Pneumonia, COPD exacerbation. He did have 12mm spiculated nodule left lower lobe on CT of his chest that is concerning for malignancy and will need to be followed up outpatient. This morning he reports improvement in his breathing. No acute events overnight. Labs/imaging: Wbc 2.3, Hgb 12.6, Plt 56, Na 134, K 3.8, Creatinine 0.77, Glucose 139, Blood cultures and Sputum cultures no growth to date. CXR was obtained that revealed: marked improvement or resolution of right upper lobe infiltrate. Pt is currently requiring 2L nasal cannula supplemental oxygen, receiving IVF NS@75ml/h, Antibiotics: IV Levaquin 750mg, Antiviral: Tamiflu. Scheduled bronchodilators. Home medications, tussionex prn for cough. IV Solumedrol 40mg to q8h. Echo performed, results pending. Wean/titrate supplemental oxygen as tolerated. Otherwise, continue with current treatment plan. Continue to closely monitor, follow up labs/imaging. Past Medical Family Social History Allergies: Allergies No Known Allergies Allergy (Verified 11/08/16 09:35) Review of Systems ROS changes noted: See HPI Vital Signs and I&O's Vital Signs: Temperature 97.9 F Pulse Rate [Right Brachial] 105 Pulse Rate 73 Respiratory Rate 20 Blood Pressure [Left Arm] 96/53 Blood Pressure 146/85 O2 Sat by Pulse Oximetry 97 Intake and Output: Intake & Output 12/17/21 12/18/21 12/19/21 12/20/21 23:59 23:59 23:59 23:59 Intake Total 1860 / 1860 Output Total 450 / 450 Balance 1410 / 1410 Physical Exam Oriented: Normal Eyes: Normal Ear: Normal Nose: Normal Throat: Normal Respiratory: Diminished Cardiovascular: Normal : Normal Auscultation: Bowel Sounds: Normal Tenderness: Normal Skin: Normal Musculoskeletal: Normal Psychiatric: Normal Mood Description: Calm and Appropriate Affect: Normal Speech Pattern: Clear and Appropriate Laboratory and Diagnostics Result Diagrams: 12/17/21 05:42 12/17/21 05:42 Labs: 12/13/21 07:30 Blood Blood Culture - Final 12/13/21 07:24 Blood Blood Culture - Final 12/13/21 12:56 Sputum - Expectorated Sputum Sputum Culture - Final 12/13/21 12:56 Sputum - Expectorated Sputum - Final Laboratory WBC 6.0 X10^3/uL (3.6-10.0) 12/17/21 05:42 RBC 4.04 X10^6/uL (4.7-6.0) L 12/17/21 05:42 Hgb 11.4 g/dL (13.5-18.0) L 12/17/21 05:42 Hct 34.5 % (42.0-54.0) L 12/17/21 05:42 MCV 85.6 fL (80.0-100.0) 12/17/21 05:42 MCH 28.3 pg (27.0-34.0) 12/17/21 05:42 MCHC 33.1 g/dL (33.0-35.0) 12/17/21 05:42 RDW 22.5 % (11.6-16.5) H 12/17/21 05:42 Plt Count 64 X10^3/uL (150.0-450.0) L 12/17/21 05:42 Plt Count Comment Decreased (ADEQUATE) 12/17/21 05:42 MPV 9.5 fL (7.4-11.0) 12/17/21 05:42 Neut % (Auto) 73.5 % (42.0-75.0) 12/17/21 05:42 Lymph % (Auto) 8.5 % (21.0-51.0) L 12/17/21 05:42 [place] % (Auto) 17.8 % (0.0-13.0) H 12/17/21 05:42 Eos % (Auto) 0.0 % (0.9-2.9) L 12/17/21 05:42 Baso % (Auto) 0.2 % (0.2-1.0) 12/17/21 05:42 Neut # (Auto) 4.4 x10^3/uL (2.2-4.8) 12/17/21 05:42 Lymph # (Auto) 0.5 X10^3/uL (1.3-2.9) L 12/17/21 05:42 [place] # (Auto) 1.1 x10^3/uL (0.3-0.8) H 12/17/21 05:42 Eos # (Auto) 0.0 x10^3/uL (0.0-0.2) 12/17/21 05:42 Baso # (Auto) 0.0 X10^3/uL (0.0-0.1) 12/17/21 05:42 Absolute Nucleated RBC 0.1 /100WBC 12/17/21 05:42 Giant Platelets Rare 12/16/21 04:40 Plt Morphology Comment Normal (NORMAL) 12/17/21 05:42 RBC Morphology Abnormal (NORMAL) 12/17/21 05:42 Anisocytosis 2+ A 12/17/21 05:42 Target Cells 1+ A 12/17/21 05:42 Ovalocytes Slight A 12/17/21 05:42 Stomatocytes 1+ A 12/13/21 06:44 Smear Path Review See note 12/13/21 06:44 D-Dimer 0.50 ug/ml (0.0-0.57) 12/13/21 06:44 Sodium 132 mmol/L (136-145) L 12/17/21 05:42 Corrected Sodium 133 mmol/L (136-145) L 12/17/21 05:42 Potassium 3.1 mmol/L (3.5-5.1) L 12/17/21 05:42 Chloride 97 mmol/L (98-107) L 12/17/21 05:42 Carbon Dioxide 31.6 mmol/L (21-32) 12/17/21 05:42 BUN 5 mg/dL (7-18) L 12/17/21 05:42 Creatinine 0.62 mg/dL (0.70-1.30) L 12/17/21 05:42 Est GFR (MDRD) Af Amer > 60 (>60) 12/17/21 05:42 Est GFR (MDRD) Non-Af > 60 (>60) 12/17/21 05:42 Glucose 134 mg/dL (65-99) H 12/17/21 05:42 Calcium 7.7 mg/dL (8.5-10.1) L 12/17/21 05:42 Corrected Calcium 9.2 mg/dL (8.5-10.1) 12/17/21 05:42 Magnesium 1.9 mg/dL (1.7-2.9) 12/17/21 05:42 Total Bilirubin 0.20 mg/dL (0.2-1.0) 12/17/21 05:42 AST 22 Units/L (15-37) 12/17/21 05:42 ALT 18 Units/L (12-78) 12/17/21 05:42 Alkaline Phosphatase 53 Units/L (46-116) 12/17/21 05:42 Creatine Kinase 205 Units/L (39-308) 12/13/21 06:44 Troponin I High Sens 23.5 ng/L (4.0-60.0) 12/13/21 06:44 B-Natriuretic Peptide 179 pg/mL (0-79) H 12/13/21 06:44 Total Protein 6.1 g/dL (6.4-8.2) L 12/17/21 05:42 Albumin 2.1 g/dL (3.4-5.0) L 12/17/21 05:42 Globulin 4.0 g/dL (2.5-4.5) 12/17/21 05:42 Albumin/Globulin Ratio 0.5 Ratio (1.1-2.1) L 12/17/21 05:42 SARS-CoV-2 (PCR) Negative (NEGATIVE) 12/13/21 07:30 Influenza Type A (PCR) Positive (NEGATIVE) A 12/13/21 07:30 Influenza Type B (PCR) Negative (NEGATIVE) 12/13/21 07:30 RSV (PCR) Negative (NEGATIVE) 12/13/21 07:30 Plan (1) Influenza A: Status: Acute (2) Pneumonia: Status: Acute (3) Lung nodule: Status: Acute (4) A-fib: Status: Acute (5) COPD exacerbation: Status: Acute (6) Hypokalemia: Status: Acute
== END 2021-12-17 13:35 | disposition home or self-care (01) | DRG 194 ==
LOC: MED/SURG 06:36 → ER 06:36 → MED/SURG 10:11
PROVIDERS: ADMIT Family Medicine; ATTEND Family Medicine
DX: J10.1 Influenza due to other identified influenza virus with other respiratory manifestations; E87.6 Hypokalemia; I10 Essential (primary) hypertension; R94.31 Abnormal electrocardiogram [ECG] [EKG]; Z20.822 Contact with and (suspected) exposure to COVID-19; R91.1 Solitary pulmonary nodule; I48.91 Unspecified atrial fibrillation; J18.8 Other pneumonia, unspecified organism; R06.02 Shortness of breath; J44.1 Chronic obstructive pulmonary disease with (acute) exacerbation